=== PATIENT | male | born 1990 | race Caucasian/White ===

== ENCOUNTER 2023-08-28 15:50 | Emergency (ER) | payer MEDICAID, SELFPAY ==
[2023-08-28 15:53] VITALS: BP 151/84; PULSE 118; RESP 20; TEMP 37; O2SAT 96
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
[2023-08-28] MEDS: ACETAMINOPHEN 1,000 MG/100 ML BTL 400 MG IVPB (16:33)
[2023-08-28] MEDS: Lactated Ringers 1,000 ML 1000 ML IV (16:33)
[2023-08-28 16:39] LABS: Abs Immature Grans 0.04 10^3/uL (0.0-0.06); Absolute Basophil Count 0.03 10^3/uL (0.0-0.2); Absolute Eosinophil Count 0.01 10^3/uL (0.0-0.7); Absolute Lymphocyte Count 1.58 10^3/uL (1.2-3.4); Absolute Monocyte Count 1.38 10^3/uL (0.1-0.8); Absolute Neutrophil Count 6.75 10^3/uL (1.2-6.7); Basophils % 0.3; Eosinophils % 0.1; HCT 35.7 % (40.0-50.0); HGB 11.9 g/dL (13.5-17.5); Immature Grans % 0.4; Lymphocytes % 16.1; MCH 28.7 pg (27.0-33.0); MCHC 33.3 % (32.0-36.0); MCV 86 fL (80-95); MPV 9.3 fL (8.0-11.0); Monocytes % 14.1; Platelet Count 190 10^3/uL (130-400); RBC 4.14 10^6/uL (4.36-5.78); RDW 12.7 % (11.8-14.1); RDW-SD 39.9 fL; WBC 9.79 10^3/uL (4.4-10.8)
[2023-08-28 16:58] LABS: ALT 128 U/L (16-63); AST 150 U/L (15-37); Albumin 4.4 g/dL (3.4-5.0); Alkaline Phosphatase 72 U/L (46-116); Anion Gap 11.1 mmol/L (3-11); BUN 17 mg/dL (7-18); Bilirubin, Total 0.7 mg/dL (0.2-1.0); CO2 26.9 mmol/L (21.0-32.0); Calcium 9.4 mg/dL (8.5-10.1); Chloride 103 mmol/L (98-107); Estimated GFR 101.92 (mL/min/1.73m2); Glucose 97 mg/dL (74-106); Potassium 3.1 mmol/L (3.5-5.1); Sodium 141 mmol/L (136-145); Total Protein 8.2 g/dL (6.4-8.2)
[2023-08-28 16:59] LABS: ETHANOL BLOOD < 3.0 mg/dL (<10)
[2023-08-28] MEDS: Normal Saline - Diluent 50 ML VIAL IJ (17:28)
[2023-08-28] MEDS: Omnipaque 350 MG/ML 100 ML BTL IJ (17:29)
[2023-08-28] MEDS: Normal Saline Flush 10 ML SYR IVP (17:29)
[2023-08-28 18:35] VITALS: BP 137/78; PULSE 82; TEMP 37.2; O2SAT 95
[2023-09-01 11:17] LABS: Hepatitis A Antibody IgM Negative (Negative); Hepatitis B Core Antibody Positive (Negative); Hepatitis B surface Ag Negative (Negative); Hepatitis C Ab w Rflx HCV PCR Reactive (Negative)
[2023-09-02 22:53] LABS: HBc IgM Ab, S Negative (Negative)
[2023-09-03 13:22] LABS: HCV RNA Detection Quantitative 81500 IU/mL (Undetected); HCV RNA Qualitative Detected (Undetected)
== END 2023-08-28 18:36 | disposition home or self-care (01) ==
LOC: ER 18:43
PROVIDERS: Emergency Provider Physician Assistant
DX: S06.0X0A Concussion without loss of consciousness, initial encounter (principal); S30.0XXA Contusion of lower back and pelvis, initial encounter; V03.10XA Pedestrian on foot injured in collision with car, pick-up truck or van in traffic accident, initial encounter; Y93.01 Activity, walking, marching and hiking; Y92.89 Other specified places as the place of occurrence of the external cause; Y99.9 Unspecified external cause status
CPT/HCPCS: 74177; 80053; 86704; 86709; 86803; 86850; 86900; 86901; 87340; 87522; 96361; 96365; 99285; 70450; 71260; 72125; 80320; 85025; 86705; J0131; J3490

== ENCOUNTER 2023-09-05 02:58 | Emergency (ER) | payer MEDICAID, SELFPAY ==
[2023-09-05] VITALS (162 sets, daily range): BP systolic 105–144; BP diastolic 50–76; PULSE 66–128; RESP 8–44; TEMP 37–37.2; O2SAT 88–99
--- NOTE | 2023-09-05 02:45 | RT.EKG_ITS ---
APPROVED REPORT Exam: Resting ECG Reason for Exam: dizzy Patient Location: E HR:118 bpm ECG Measurements Heart Rate 118 AXIS SC 121 P 34 QRSd 81 QRS 51 QT 323 T 33 QTc 453 Conclusion Sinus tachycardia...rate> 99 Narrow complex sinus tachycardia at a rate of 118. Normal axis. Intervals within normal limits. No ST segment abnormalities. No T wave inversions. No prior for comparison.
--- NOTE | 2023-09-05 03:16 | W.ED.GENAD ---
Discharge Plan Discharge Details Chief Complaint: DrugWithdr/MAT Clinical Impression: Cocaine abuse Primary Care Provider: Unknown,Unknown ED Provider: Deborah Esteban Home Meds and New Rx's Prescriptions: No Action methadone 40 mg Tablet,Soluble 80 mg PO QAM clonidine HCl 0.1 mg tablet 0.1 mg PO BID Patient Comments: Take 1 tablet by mouth twice a day methadone 40 mg Tablet,Soluble 70 mg PO QHS clonidine HCl 0.2 mg tablet 0.2 mg PO QHS Patient Comments: TAKE ONE TABLET BY MOUTH AT BEDTIME HPI General Date/Time Provider Initiated Documentation: 09/05/23 03:16. HPI Narrative: HPI This is a 33-year-old male arrived to the emergency department via paramedics in the setting of feeling faint and sweaty today. Patient reports that he had been binging on cocaine for the past 10 days. He last used cocaine yesterday. Today he feels dizzy and loopy. He also takes methadone. He reports that he significantly smokes and injects cocaine. He is not currently suicidal nor homicidal. Beyond methadone he takes no other medications. He denies routine ethanol. He says that he does occasionally vape tobacco. He denies nauseousness shortness of breath chest pain fevers chills and shortness of breath. Exam General: Well-appearing in no acute distress speaking in complete sentences. Head: Normocephalic, atraumatic. Eye: Extraocular eye movements intact. No conjunctival injection. No scleral icterus. Ear, nose, mouth, throat: Grossly normal inspection. Normal voice, handling secretions normally. Neck: Trachea midline. Cardiovascular: Well-perfused distal extremities. Rapid regular rate. Respiratory: Nonlabored respiration. Clear lungs bilaterally Gastrointestinal: Nondistended abdomen. Soft nontender Musculoskeletal: No edema. Moving all 4 extremities spontaneously. Skin: Normal for age and race, grossly normal temperature and turgor. No acute rash. No stigmata of endocarditis. Neurologic: Alert and appropriate, no apparent acute deficits. Psychiatric: Mood and manner are appropriate. Grooming and personal hygiene are appropriate. MDM This is an overall well-appearing normothermic but tachycardic 33-year-old male with recent increased use of cocaine now with concerns over feeling faint for which patient will benefit from supportive care. No signs of trauma so low suspicion for intracranial hemorrhage. Patient is maintaining his airway and does not have pinpoint pupils so low suspicion for opiate toxidrome. Patient is not diaphoretic nor agitated to suggest sympathomimetic toxidrome so will defer benzodiazepines at this point time. No tonic-clonic activity to suggest seizures and no indication for EEG. Patient is moving all 4 extremities spontaneously and my suspicion is low for CVA so I do not feel that the patient requires an MRI. No fevers nor nuchal rigidity to suggest meningitis so no indication for LP. No pain or proportion to suggest necrotizing soft tissue infection. We will ensure patient does not have myocardial injury with troponin testing and will also obtain a CK to assess for rhabdomyolysis. No stigmata of endocarditis on physical exam and no chest pain to suggest septic emboli. Given no hypoxia, no shortness of breath and no chest pain will defer chest x-ray at this point time. No reported suicidal or homicidal ideation however will obtain salicylates, acetaminophen, and ethanol levels. Patient is on methadone however his QTc is not prolonged on his ECG. We will monitor the patient in the emergency department. 3:41 AM Patient's heart rate normalized to 82 bpm after drinking some fluids orally and receiving 1 L of IV fluids. He complained of nausea for which he received 4 mg of ondansetron. 3:55 AM Negative ethanol level. Basic metabolic panel showing mild anion gap and mild hyperglycemia. Normal bicarbonate. Not consistent with DKA. Very mild hypokalemia with a serum potassium of 3.4. No XOCHITL. CBC showing mild normocytic anemia improved compared to prior. No thrombocytopenia. No leukocytosis. Negative troponin. CK not consistent with rhabdomyolysis. Urine drug screen positive for methadone and cocaine. 5:12 AM Patient is feeling agitated for which I gave him 1 mg of oral lorazepam. Current heart rate 68 bpm. Negative acetaminophen level. Salicylate level not undetectable but not flagged as positive. Will order a repeat salicylate level to be timed with repeat troponin in approximately 1 hour. 6:10 AM I signed patient out to Dr. Esteban. We will offer intervention services once patient awakes. Chronic conditions affecting the care of the patient: Cocaine and opiate use History obtained from an outside historian: N/A External record review: [facility] EMR [Diagnostic interpretations performed by me:] [Per my independent interpretation EKG shows:] Narrow complex sinus tachycardia at a rate of 118. Normal axis. Intervals within normal limits. No ST segment abnormalities. No T wave inversions. No prior for comparison. Medications: ondansetron Social determinants of health affecting disposition: Patient reports that he does have a safe place to stay as he stays with friends in a sober living home. Management discussed with: Oncoming ED provider Treatment/interventions considered: N/A Response to therapies provided: Symptomatic improvement status post oral and IV fluids Related Data Home Medications Medication Instructions Recorded Confirmed clonidine HCl 0.1 mg tablet 0.1 mg PO BID 09/05/23 09/05/23 clonidine HCl 0.2 mg tablet 0.2 mg PO QHS 09/05/23 09/05/23 methadone 40 mg soluble tablet 70 mg PO QHS 09/05/23 09/05/23 methadone 40 mg soluble tablet 80 mg PO QAM 09/05/23 09/05/23 Allergies Allergy/AdvReac Type Severity Reaction Status Date / Time No Known Allergies Allergy Unverified 08/28/23 15:57 General Stated Complaint: DrugWithdr/MAT HALLE: 2 PFSH All Active Problems (Updated 09/05/23 @ 03:57 by Diaz Young MD) Concussion (Acute) Lumbar contusion (Acute) Cocaine abuse (Acute) Social History Smoking/Tobacco Use Status: Current-Occasional Tobacco Type: cigarettes and e-cigarettes Smoking risk assessment performed?: Yes Alcohol Intake: former Drug use: Binges Substance use type: crack/cocaine Details: methadone and cocaine Housing: homeless Do you feel safe at home: Yes Do you feel safe in your relationship?: Yes Course Vital Signs Vital signs: Vital Signs Temperature 37.2 C 09/05/23 03:00 Pulse 128 H 09/05/23 03:00 Respiratory Rate 22 09/05/23 03:00 Blood Pressure 117/56 L 09/05/23 03:00 Pulse Oximetry 95 09/05/23 03:00 Temperature 37.2 C 09/05/23 03:00 Temperature Source Oral 09/05/23 03:00 Pulse 128 H 09/05/23 03:00 Respiratory Rate 22 09/05/23 03:00 Respiratory Effort Normal, Non-Labored 09/05/23 03:04 Respiratory Pattern Irregular 09/05/23 03:04 Blood Pressure 117/56 L 09/05/23 03:00 Blood Pressure Position Sitting 09/05/23 03:00 Pulse Oximetry 95 09/05/23 03:00 Oxygen Delivery Method Room Air 09/05/23 03:00 Oxygen Flow Rate 0 09/05/23 03:00 Pain Level 0 09/05/23 03:00
[2023-09-05 03:46] LABS: Abs Immature Grans 0.02 10^3/uL (0.0-0.06); Absolute Basophil Count 0.03 10^3/uL (0.0-0.2); Absolute Lymphocyte Count 0.66 10^3/uL (1.2-3.4); Absolute Monocyte Count 0.56 10^3/uL (0.1-0.8); Absolute Neutrophil Count 7.11 10^3/uL (1.2-6.7); Basophils % 0.4; HCT 36.9 % (40.0-50.0); HGB 12.1 g/dL (13.5-17.5); Immature Grans % 0.2; Lymphocytes % 7.9; MCH 28.5 pg (27.0-33.0); MCHC 32.8 % (32.0-36.0); MCV 87 fL (80-95); MPV 10.4 fL (8.0-11.0); Monocytes % 6.7; Neutrophils % 84.8; Platelet Count 189 10^3/uL (130-400); RBC 4.25 10^6/uL (4.36-5.78); RDW 12.9 % (11.8-14.1); WBC 8.38 10^3/uL (4.4-10.8)
[2023-09-05 03:52] LABS: *AMPHETAMINES SCREEN URINE Negative (Negative); *BARBITURATES SCREEN URINE Negative (Negative); *BENZODIAZEPINES SCREEN URINE Negative (Negative); Anion Gap 12.2 mmol/L (3-11); BUN 19 mg/dL (7-18); CO2 25.8 mmol/L (21.0-32.0); Calcium 9.4 mg/dL (8.5-10.1); Cannabinoids THC Negative (Negative); Chloride 103 mmol/L (98-107); Cocaine Screen,Urine Positive (Negative); Creatine Kinase 271 U/L (39-308); Estimated GFR 101.92 (mL/min/1.73m2); Glucose 169 mg/dL (74-106); METHADONE URINE SCREEN Positive (Negative); OPIATES URINE SCREEN Negative (Negative); Potassium 3.4 mmol/L (3.5-5.1); Sodium 141 mmol/L (136-145); Troponin I < 50 ng/L (<or=60)
[2023-09-05] MEDS: Ondansetron 4 MG/2 ML VIAL IVP (03:52)
[2023-09-05] MEDS: Normal Saline 1,000 ML 1000 ML IV (03:52)
[2023-09-05 03:53] LABS: ETHANOL BLOOD < 3.0 mg/dL (<10); Tricyclic Antidepressants Negative (Negative)
[2023-09-05 04:11] LABS: Salicylate 3.1 mg/dL (<2.8)
[2023-09-05 04:12] LABS: Acetaminophen < 2 ug/mL (10-30)
[2023-09-05] MEDS: LORazepam 1 MG TAB PO (05:14)
--- NOTE | 2023-09-05 06:04 | W.EDPROG ---
Date of service: 09/05/23 Time of Service: 06:00 Medical Decision Making This patiient was signed out to me. Please see previous notes for H&P and initial eval. In brief, 33yo M presenting after cocaine use. EKG, workup reassuring. Pending repeat troponin and salicylate level; if no increases plan for discharge home. Troponin negative. Salicylate negative. On reassessment he is well appearing with reassuring vital signs. Ambulates in the department with a steady gait. Discharged home; discharge instructions including return precautions were reviewed with patient who verbalized understanding. All questions were answered and they are in full agreement with the plan. Discharge Plan Disposition Patient Disposition: Home Condition: Good Discharge Details Clinical Impression: Cocaine abuse Primary Care Provider: Unknown,Unknown ED Provider: Deborah Esteban Home Meds and New Rx's Prescriptions: No Action methadone 40 mg Tablet,Soluble 80 mg PO QAM clonidine HCl 0.1 mg tablet 0.1 mg PO BID Patient Comments: Take 1 tablet by mouth twice a day methadone 40 mg Tablet,Soluble 70 mg PO QHS clonidine HCl 0.2 mg tablet 0.2 mg PO QHS Patient Comments: TAKE ONE TABLET BY MOUTH AT BEDTIME Discharge Instructions Instructions: Cocaine Abuse (ED) Additional Instructions: Call your primary care doctor today to schedule an appointment to follow up on your visit here. Return to the emergency department for new or worsening symptoms.
[2023-09-05 06:41] LABS: Troponin I < 50 ng/L (<or=60)
[2023-09-05 06:58] LABS: Salicylate < 2.8 mg/dL (<2.8)
== END 2023-09-05 07:37 | disposition home or self-care (01) ==
PROVIDERS: Emergency Medicine; Emergency Provider Student in an Organized Health Care Education/Training Program
DX: F14.10 Cocaine abuse, uncomplicated (principal)
CPT/HCPCS: 80048; 80307; 82550; 93005; 96365; 96376; 99284; 80320; 80329; 84484; 85025; 93010; J2405

== ENCOUNTER 2023-09-18 22:42 | Emergency (ER) | payer MEDICAID, SELFPAY ==
--- NOTE | 2023-09-18 22:30 | RT.EKG_ITS ---
APPROVED REPORT Exam: Resting ECG Reason for Exam: Chest Pain Patient Location: E HR:126 bpm ECG Measurements Heart Rate 126 AXIS KS 142 P 73 QRSd 84 QRS 61 QT 320 T 20 QTc 464 Conclusion Sinus tachycardia...rate> 99 Atrial premature complex...SV complex w/ short R-R interval PHysician: no stemi, intervals normal
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
[2023-09-18 22:46] VITALS: BP 157/129; PULSE 132; RESP 17; TEMP 37.1; O2SAT 96
--- NOTE | 2023-09-18 22:58 | ED.GENADUL_ITS ---
Discharge Plan Disposition Patient Disposition: Home Discharge Details Clinical Impression: Cocaine withdrawal, Opiate withdrawal, Incidental pulmonary nodule Primary Care Provider: Unknown,Unknown ED Provider: Zachery Wren Home Meds and New Rx's Prescriptions: No Action methadone 40 mg Tablet,Soluble 80 mg PO QAM clonidine HCl 0.1 mg tablet 0.1 mg PO BID Patient Comments: Take 1 tablet by mouth twice a day methadone 40 mg Tablet,Soluble 70 mg PO QHS clonidine HCl 0.2 mg tablet 0.2 mg PO QHS Patient Comments: TAKE ONE TABLET BY MOUTH AT BEDTIME Discharge Instructions Instructions: Narcotic Withdrawal (ED) Additional Instructions: At this time your withdrawal symptoms have improved. Your work-up shows no signs of heart attack or other significant abnormality. Please follow-up closely with your mental health advocates. They can be contacted at [phone] If you notice any worsening of your symptoms, or any new symptoms such as vomiting, diarrhea, fever, chills, shortness of breath, chest pain, numbness, weakness, or fainting , please return immediately to the emergency department for reevaluation. Please follow up with your primary care provider as soon as possible for reassessment and reevaluation. As always, it was a pleasure participating in your medical care today. Medical Decision Making 33-year-old male with a past medical history of cocaine and heroin use, as well as history of cocaine induced myocardial infarction presents today for evaluation of chest pain. Patient states that he had been using cocaine and heroin recently, he states that this is brought on by a in the family and significant peer pressures. He has been withdrawing over the last 3 days, last use was 3 days ago. He states that he has been having persistent chest pain, and feelings of panic and anxiety ever since. He denies any vomiting or diarrhea. EMS was called today, and he was brought to the ER for further evaluation. Per EMS report the patient is tachycardic, hypertensive. Patient states that this feels like his last time that he withdrew from cocaine opium. Patient describes the chest pain as a tightness around his chest whenever he tries to breathe or move. He denies any tearing or ripping sensation. He denies any arm or neck pain. He denies any alcohol use or other drug use. No other complaints at this time. No other modifying factors. Exam demonstrates slightly anxious appearing male. He denies homicidal or suicidal ideations. He is tachycardic, hypertensive, temperature questionably elevated at 37.7. He denies any antipsychotic use, he denies any other drug use. Patient is requesting that no one be contacted from his HIPAA list, and we will put him through to access to change his current HIPAA list. Additionally he is asking us to contact a refinery operator vapor recovery unit to help him with his current struggles. Differential at this time includes opiate withdrawal, concurrent cocaine use, infection, and less likely dissection. We will give Ativan, rehydrate, evaluate for these etiologies, monitor closely and reassess. 1:44 AM Patient did take his own IV out on his own volition. CT scan demonstrates no evidence of acute process. There is an old unchanged lung nodule. Laboratory work-up is notably benign. Patient did not provide a urinalysis for us. Patient was given clonidine patch and some Valium and this notably resolved his elevated heart rate his anxiety and his chest pain. Symptoms appear clinically inconsistent with ACS or dissection. Laboratory work-up is otherwise benign. Patient does feel much better. He feels comfortable going home but does not have a way to get back at this time. Unfortunately the recovery technology counselors did not call back after having been paged a few times. Patient did asked to speak with her mental health advocates as he does feel depressed. He denies any homicidal or suicidal ideations though, he just feels somewhat depressed with his current situation. Patient is otherwise stable for discharge. We will continue to watch the patient here while we wait for him to talk with mental health. No indication for one-to-one observer as he has no homicidal or suicidal ideations at this time. 2:06 AM Patient was assessed by mental health. They provided resources to him. He continues to this deny any homicidal or suicidal ideations. No indication for involuntary admission. Patient stable for discharge. We will give him the resources to continue to contact mental health on an outpatient basis if needed. Patient otherwise stable. Discussed red flags for which to return. Patient no longer appears to be in benjy withdrawal. Patient is hemodynamically stable. I have extensively reviewed the treatment plan and discharge instructions with the patient. I have addressed all patient concerns at this time. The patient was made aware of what symptoms to monitor for that would warrant a return to the emergency department. Discussed the plan with the patient, they demonstrate verbal understanding and agreement with our assessment and plan at this time. The documentation in this chart was dictated using ttwick dictation software. Please excuse any dictation errors. The patient is able to speak clearly. There is no demonstration of any slurring of speech. There is evidence of clear de cision making capacity. Patient is able to ambulate well without any difficulty. There are no signs of ataxia or stumbling motions. FINDINGS: Pulmonary arteries: The pulmonary arteries enhance appropriately with no evidence of pulmonary embolism. Aorta: No aortic aneurysm or dissection. No mediastinal hematoma. Thyroid: The visualized thyroid gland demonstrates no gross abnormality. Lungs: No acute tracheobronchial abnormalities. No gross pulmonary infiltrates or edema pattern. There is a 4 mm juxtapleural noncalcified pulmonary nodule in the posterior right base series 9, image 234. This is unchanged from recent scan 08/28/2023. If patient does not have known cancer, follow up should be based on clinical information because of the low risk of cancer in this age group. (Tc et al., Fleischner Society, 2017). Pleural spaces: No pleural effusion. No pneumothorax. Heart: Heart size normal. No pericardial effusion. Mediastinal space: The esophagus is largely contracted but demonstrates no gross abnormality. Lymph nodes: No supraclavicular or axillary adenopathy. No mediastinal or hilar adenopathy. Spleen: Mild splenomegaly measuring 14.4 cm unchanged. No focal splenic lesions. Bones/joints: No acute osseous abnormalities are identified. There are few chronic healed right posterior lower rib fractures. Soft tissues: The soft tissues of the chest wall demonstrate no acute abnormality. IMPRESSION: 1. No evidence of pulmonary embolism or aortic dissection. 2. No acute thoracic process is evident. No change from 08/28/2023. 3. There is a 4 mm juxtapleural nodule in the posterior right lung base which is unchanged from recent scan. Please see recommendations above. 4. Mild splenomegaly unchanged. Thank you for allowing us to participate in the care of your patient. Dictated and Authenticated by: Diaz Workman MD 09/19/2023 1:38 AM Eastern Time ([place] & [place]) HPI General Date/Time Provider Initiated Documentation: 09/18/23 22:49 . HPI Narrative: 33-year-old male with a past medical history of cocaine and heroin use, as well as history of cocaine induced myocardial infarction presents today for evaluation of chest pain. Patient states that he had been using cocaine and heroin recently, he states that this is brought on by a in the family and significant peer pressures. He has been withdrawing over the last 3 days, last use was 3 days ago. He states that he has been having persistent chest pain, and feelings of panic and anxiety ever since. He denies any vomiting or diarrhea. EMS was called today, and he was brought to the ER for further evaluation. Per EMS report the patient is tachycardic, hypertensive. Patient states that this feels like his last time that he withdrew from cocaine opium. Patient describes the chest pain as a tightness around his chest whenever he tries to breathe or move. He denies any tearing or ripping sensation. He denies any arm or neck pain. He denies any alcohol use or other drug use. No other complaints at this time. No other modifying factors. Related Data Home Medications Medication Instructions Recorded Confirmed clonidine HCl 0.1 mg tablet 0.1 mg PO BID 09/05/23 09/05/23 clonidine HCl 0.2 mg tablet 0.2 mg PO QHS 09/05/23 09/05/23 methadone 40 mg soluble tablet 70 mg PO QHS 09/05/23 09/05/23 methadone 40 mg soluble tablet 80 mg PO QAM 09/05/23 09/05/23 Allergies Allergy/AdvReac Type Severity Reaction Status Date / Time No Known Allergies Allergy Unverified 08/28/23 15:57 General Stated Complaint: Chest Pain HALLE: 2 Review of Systems All systems reviewed & are unremarkable except as noted in HPI and below PFSH All Active Problems (Updated 09/19/23 @ 02:10 by Zachery Wren DO) Incidental pulmonary nodule (Acute) Opiate withdrawal (Acute) Cocaine withdrawal (Acute) Cocaine abuse (Acute) Lumbar contusion (Acute) Concussion (Acute) Social History Smoking/Tobacco Use Status: Current every day Tobacco Type: cigarettes and e- cigarettes Smoking risk assessment performed?: Yes Alcohol Intake: former Drug use: Binges Substance use type: crack/cocaine Details: methadone and cocaine Housing: homeless Do you feel safe at home: Yes Do you feel safe in your relationship?: Yes Exam Narrative Exam Narrative: 1.Const: Well-nourished, Well-developed, appearing stated age 2.Eyes: PERRL, no conjunctival injection, and symmetrical lids. 3.ENT: Atraumatic external nose and ears. Moist MM. Neck: Symmetric, trachea midline, No thyromegaly. 4.CVS: +S1/S2, No murmurs or gallops. Peripheral pulses 2+ and equal in all extremities. Brisk capillary refill in all extremities. Radial pulses +2 bilaterally 5.RESP: Unlabored respiratory effort. Clear to auscultation bilaterally. No wheezes rales or rhonchi 6.GI: Soft, Nontender/Nondistended, No hepatosplenomegaly. No guarding or rebound. 7.MSK: Normocephalic/Atraumatic, Extremities w/o deformity or ttp No cyanosis or clubbing, Normal movement of all extremities 8.Skin: Warm, Dry. No rashes or lesions. 9.Neuro: powerhouse helper II-XII grossly intact. Sensation grossly intact, no focal neurologic deficits. 10.Psych: (AAO) x3. Appropriate mood and affect Course Vital Signs Vital signs: Vital Signs Temperature 37.7 C H 09/18/23 22:46 Pulse 132 H 09/18/23 22:46 Respiratory Rate 17 09/18/23 22:46 Blood Pressure 157/129 H 09/18/23 22:46 Pulse Oximetry 96 09/18/23 22:46 Temperature 37.7 C H 09/18/23 22:46 Temperature Source Oral 09/18/23 22:46 Pulse 132 H 09/18/23 22:46 Respiratory Rate 17 09/18/23 22:46 Respiratory Effort Normal 09/18/23 22:49 Blood Pressure 157/129 H 09/18/23 22:46 Pulse Oximetry 96 09/18/23 22:46 Oxygen Delivery Method Room Air 09/18/23 22:46 Oxygen Flow Rate 0 09/18/23 22:46
[2023-09-18 23:01] LABS: Abs Immature Grans 0.03 10^3/uL (0.0-0.06); Absolute Basophil Count 0.03 10^3/uL (0.0-0.2); Absolute Eosinophil Count 0.02 10^3/uL (0.0-0.7); Absolute Lymphocyte Count 1.25 10^3/uL (1.2-3.4); Absolute Neutrophil Count 6.48 10^3/uL (1.2-6.7); Basophils % 0.3; Eosinophils % 0.2; Immature Grans % 0.3; Lymphocytes % 14.5; MCH 28.5 pg (27.0-33.0); MCHC 32.5 % (32.0-36.0); MCV 88 fL (80-95); MPV 10.1 fL (8.0-11.0); Monocytes % 9.3; Neutrophils % 75.4; Platelet Count 212 10^3/uL (130-400); RBC 4.56 10^6/uL (4.36-5.78); RDW 13.2 % (11.8-14.1); RDW-SD 42.5 fL; WBC 8.61 10^3/uL (4.4-10.8)
[2023-09-18] MEDS: LORazepam 2 MG/ML VIAL IVP (23:07)
[2023-09-18] MEDS: Normal Saline 1,000 ML 1000 ML IV (23:12)
[2023-09-18 23:16] VITALS: RESP 20
[2023-09-18 23:17] LABS: INR 1.1 (0.9-1.1); PTT Activated 21.6 sec (23.6-32.8); Prothrombin Time 11.1 sec (9.1-11.1)
[2023-09-18 23:24] LABS: ALT 313 U/L (16-63); AST 113 U/L (15-37); Albumin 4.3 g/dL (3.4-5.0); Alkaline Phosphatase 78 U/L (46-116); Anion Gap 7.3 mmol/L (3-11); BUN 10 mg/dL (7-18); Bilirubin, Total 0.4 mg/dL (0.2-1.0); CO2 28.7 mmol/L (21.0-32.0); CREATININE 0.9 mg/dL (0.70-1.30); Calcium 9.5 mg/dL (8.5-10.1); Chloride 102 mmol/L (98-107); Estimated GFR 115.65 (mL/min/1.73m2); Glucose 161 mg/dL (74-106); NT-proBNP 41 pg/mL (<300); Sodium 138 mmol/L (136-145); TSH (W/Ref FT4) 2.54 uIU/mL (0.36-3.74); Total Protein 8.3 g/dL (6.4-8.2); Troponin I < 50 ng/L (<or=60)
--- NOTE | 2023-09-18 23:31 | NUR.NOTE ---
pt refuses to be hooked up to the monitor. states it makes him too anxious, states he will leave, can't deal with the anxiety. heart monitor and BP are not on pt. pt walking around room. Nursing Note:
[2023-09-18 23:35] LABS: ETHANOL BLOOD < 3.0 mg/dL (<10)
[2023-09-18 23:48] LABS: COVID-19 PCR Negative (Negative); Influenza A PCR Negative (Negative); Influenza B PCR Negative (Negative); RSV PCR Negative (Negative)
[2023-09-18 23:50] LABS: Source Nasopharynx
[2023-09-18] MEDS: diazePAM 10 MG/2 ML SYR IVP (23:50)
[2023-09-19] MEDS: cloNIDine 0.1 MG PATCH TD (00:08)
--- NOTE | 2023-09-19 00:10 | NUR.NOTE ---
restless, anxious, can't stop twitching-can't go into CT scan. 10mg IV valium given.Nursing Note:
[2023-09-19 00:13] VITALS: PULSE 137; O2SAT 96
[2023-09-19] MEDS: Normal Saline - Diluent 50 ML VIAL IJ (00:37)
[2023-09-19] MEDS: Omnipaque 350 MG/ML 100 ML BTL IJ (00:38)
--- NOTE | 2023-09-19 01:21 | NUR.NOTE ---
spent 10 minutes in Bathroom. had the water on, flushed the toilet multiple times, said it helps him to take a shit. when he opeended the door to come out, he had pulled his IV out. blood on the his gown and one the floor. said he did not want the IV in anymore. said he had vomited on the floor. he was trying to clean it up. Nursing Note:
--- NOTE | 2023-09-19 01:39 | DI.VRAD_ITS ---
PROCEDURE INFORMATION: Exam: CTA Chest With Contrast Exam date and time: 09/19/2023 12:23 AM Age: 33 years old Clinical indication: Chest pressure and other: Cocaine, chest pain, eval for dissection TECHNIQUE: Imaging protocol: Computed tomographic angiography of the chest with contrast. Exam focused on the arteries. 3D rendering (Not supervised by radiologist): MIP and/or 3D reconstructed images were created by the technologist. Contrast material: OMNIPAQUE 350; Contrast volume: 100 ml; Contrast route: INTRAVENOUS (IV); COMPARISON: CT CHEST/ABD/PEL W 08/28/2023 5:05 PM FINDINGS: Pulmonary arteries: The pulmonary arteries enhance appropriately with no evidence of pulmonary embolism. Aorta: No aortic aneurysm or dissection. No mediastinal hematoma. Thyroid: The visualized thyroid gland demonstrates no gross abnormality. Lungs: No acute tracheobronchial abnormalities. No gross pulmonary infiltrates or edema pattern. There is a 4 mm juxtapleural noncalcified pulmonary nodule in the posterior right base series 9, image 234. This is unchanged from recent scan 08/28/2023. If patient does not have known cancer, follow up should be based on clinical information because of the low risk of cancer in this age group. (Tc et al., Fleischner Society, 2017). Pleural spaces: No pleural effusion. No pneumothorax. Heart: Heart size normal. No pericardial effusion. Mediastinal space: The esophagus is largely contracted but demonstrates no gross abnormality. Lymph nodes: No supraclavicular or axillary adenopathy. No mediastinal or hilar adenopathy. Spleen: Mild splenomegaly measuring 14.4 cm unchanged. No focal splenic lesions. Bones/joints: No acute osseous abnormalities are identified. There are few chronic healed right posterior lower rib fractures. Soft tissues: The soft tissues of the chest wall demonstrate no acute abnormality. IMPRESSION: 1. No evidence of pulmonary embolism or aortic dissection. 2. No acute thoracic process is evident. No change from 08/28/2023. 3. There is a 4 mm juxtapleural nodule in the posterior right lung base which is unchanged from recent scan. Please see recommendations above. 4. Mild splenomegaly unchanged. Dictated and Authenticated by: Diaz Workman MD. Ordering:TOBI Bingham MD
[2023-09-19 02:29] VITALS: BP 137/118; PULSE 118; RESP 16; TEMP 37.1; O2SAT 95
[2023-09-22 13:30] LABS: Hepatitis A Antibody IgM Negative (Negative); Hepatitis B Core Antibody Positive (Negative); Hepatitis B surface Ag Negative (Negative); Hepatitis C Ab w Rflx HCV PCR Reactive (Negative)
[2023-09-24 12:13] LABS: HCV RNA Qualitative Detected (Undetected)
== END 2023-09-19 02:29 | disposition home or self-care (01) ==
PROVIDERS: Emergency Provider Student in an Organized Health Care Education/Training Program
DX: R07.9 Chest pain, unspecified (principal); F11.23 Opioid dependence with withdrawal; F14.23 Cocaine dependence with withdrawal; R91.1 Solitary pulmonary nodule; R00.0 Tachycardia, unspecified; R03.0 Elevated blood-pressure reading, without diagnosis of hypertension; F32.A Depression, unspecified; F17.200 Nicotine dependence, unspecified, uncomplicated
CPT/HCPCS: 36415; 71275; 80053; 86704; 86709; 86803; 87340; 87522; 87637; 93005; 96361; 96374; 96375; 99285; 80320; 83880; 84443; 84484; 85025; 85610; 85730; 86705; 93010; 99284; J2060; J3360; J3490

== ENCOUNTER 2023-09-20 01:18 | Emergency (ER) | payer MEDICAID, SELFPAY ==
--- NOTE | 2023-09-20 01:15 | RT.EKG_ITS ---
APPROVED REPORT Exam: Resting ECG Reason for Exam: chest tightness Patient Location: E HR:119 bpm ECG Measurements Heart Rate 119 AXIS NC 135 P 51 QRSd 85 QRS 49 QT 357 T 31 QTc 503 Conclusion Sinus tachycardia...rate> 99 Prolonged QT interval...QTc >488mS I have reviewed and interpreted ECG and agree with software generated interpretation.
[2023-09-20 01:17] VITALS: BP 175/103; PULSE 116; RESP 18; TEMP 37.2
[2023-09-20 01:21] VITALS: RESP 18
--- NOTE | 2023-09-20 01:52 | NUR.NOTE ---
RN noted that PT has something in his pants that he is hiding. RN dirt supervisor notified Nursing Note:
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
[2023-09-20 01:54] LABS: Abs Immature Grans 0.02 10^3/uL (0.0-0.06); Absolute Basophil Count 0.04 10^3/uL (0.0-0.2); Absolute Eosinophil Count 0.05 10^3/uL (0.0-0.7); Absolute Lymphocyte Count 1.67 10^3/uL (1.2-3.4); Absolute Monocyte Count 0.95 10^3/uL (0.1-0.8); Basophils % 0.6; Eosinophils % 0.7; HGB 12.6 g/dL (13.5-17.5); Immature Grans % 0.3; Lymphocytes % 23.8; MCH 28.1 pg (27.0-33.0); MCHC 32.3 % (32.0-36.0); MCV 87 fL (80-95); MPV 9.5 fL (8.0-11.0); Monocytes % 13.5; Neutrophils % 61.1; Platelet Count 211 10^3/uL (130-400); RBC 4.49 10^6/uL (4.36-5.78); RDW 13.1 % (11.8-14.1); RDW-SD 41.2 fL; WBC 7.03 10^3/uL (4.4-10.8)
[2023-09-20 02:11] LABS: Salicylate < 2.8 mg/dL (<2.8)
--- NOTE | 2023-09-20 02:15 | NUR.NOTE ---
PT was in the bathroom for an extended amount of time. and states that he has diarrhea. PT did not give a urine sample. Nursing Note:
[2023-09-20] MEDS: Mylanta Suspension 30 ML CUP PO (02:18)
[2023-09-20 02:19] LABS: ALT 261 U/L (16-63); AST 98 U/L (15-37); Acetaminophen < 2 ug/mL (10-30); Albumin 4.3 g/dL (3.4-5.0); Alkaline Phosphatase 74 U/L (46-116); Anion Gap 6.5 mmol/L (3-11); BUN 13 mg/dL (7-18); Bilirubin, Total 0.7 mg/dL (0.2-1.0); CO2 29.5 mmol/L (21.0-32.0); CREATININE 0.8 mg/dL (0.70-1.30); Calcium 9.9 mg/dL (8.5-10.1); Chloride 101 mmol/L (98-107); Estimated GFR 119.84 (mL/min/1.73m2); Glucose 171 mg/dL (74-106); Potassium 3.1 mmol/L (3.5-5.1); Sodium 137 mmol/L (136-145); TSH (W/Ref FT4) 1.82 uIU/mL (0.36-3.74); Total Protein 7.8 g/dL (6.4-8.2)
[2023-09-20 02:20] LABS: ETHANOL BLOOD < 3.0 mg/dL (<10)
[2023-09-20] MEDS: LORazepam 1 MG TAB 2 MG PO ×2 (02:32→04:46)
[2023-09-20] MEDS: Potassium Chloride 20 MEQ TABCR 40 MEQ PO (02:36)
[2023-09-20 03:42] LABS: *AMPHETAMINES SCREEN URINE Negative (Negative); *BARBITURATES SCREEN URINE Negative (Negative); *BENZODIAZEPINES SCREEN URINE Positive (Negative); Cannabinoids THC Negative (Negative); Cocaine Screen,Urine Positive (Negative); METHADONE URINE SCREEN Positive (Negative); OPIATES URINE SCREEN Negative (Negative)
[2023-09-20 03:52] LABS: Tricyclic Antidepressants Negative (Negative)
[2023-09-20] MEDS: OLANZapine 10 MG TAB PO (04:46)
[2023-09-20 06:29] VITALS: O2SAT 95
[2023-09-20 06:30] VITALS: BP 122/56; PULSE 74
--- NOTE | 2023-09-20 06:53 | NUR.NOTE ---
PT was wanded by security before being place in ED zone B. PT belongings were secured in the zone B vestibule in [place] [id number]. Nursing Note:
--- NOTE | 2023-09-20 14:06 | W.EDPROG ---
Date of service: 09/20/23 Time of Service: 14:06 Medical Decision Making Patient evaluated by mental health services. At this time the patient has no suicidal ideation or homicidal ideation. He states that he feels comfortable to go home. He reports that he takes methadone 70 mg twice a day and is requesting his dose as his clinic is closed already. We have not been able to confirm with [facility] the dosing however 1 single dose was given in the emergency department. No additional doses will be dispensed at this time. I explained this to the patient and he expressed understanding. The patient is stable for discharge home. Sign Out Sign Out Data: Sign Out Comment: Substance abuse, auditory hallucinations, medically cleared. Notably anxious. Pending voluntary placement for rehab and mental health. Last updated by Zachery Wren DO at 09/20/23 07:10 Discharge Plan Disposition Patient Disposition: Home Discharge Details Clinical Impression: Auditory hallucination, Substance abuse, Anxiety Primary Care Provider: Unknown,Unknown ED Provider: Marylou Gallo Home Meds and New Rx's Prescriptions: No Action methadone 40 mg Tablet,Soluble 80 mg PO QAM clonidine HCl 0.1 mg tablet 0.1 mg PO BID Patient Comments: Take 1 tablet by mouth twice a day methadone 40 mg Tablet,Soluble 70 mg PO QHS clonidine HCl 0.2 mg tablet 0.2 mg PO QHS Patient Comments: TAKE ONE TABLET BY MOUTH AT BEDTIME Discharge Instructions Additional Instructions: Please follow-up with methadone clinic for additional medications. Please follow-up with the mental health services available to you. Return to the emergency department with any suicidal or homicidal thoughts.
[2023-09-20] MEDS: Methadone 10 MG TAB 70 MG PO (14:12)
== END 2023-09-20 14:21 | disposition home or self-care (01) ==
PROVIDERS: Student in an Organized Health Care Education/Training Program; Emergency Provider Emergency Medicine
DX: F41.9 Anxiety disorder, unspecified (principal); R44.0 Auditory hallucinations; F19.10 Other psychoactive substance abuse, uncomplicated; I25.2 Old myocardial infarction; R94.31 Abnormal electrocardiogram [ECG] [EKG]; F17.210 Nicotine dependence, cigarettes, uncomplicated; F17.290 Nicotine dependence, other tobacco product, uncomplicated
CPT/HCPCS: 00123; 80053; 80307; 93005; 99283; 80320; 80329; 84443; 85025; 93010

== ENCOUNTER 2023-09-20 20:46 | Emergency (ER) | payer MEDICAID, SELFPAY ==
[2023-09-20 20:50] VITALS: BP 149/104; PULSE 130; RESP 15; O2SAT 96
--- NOTE | 2023-09-20 21:10 | ED.GENADUL_ITS ---
Discharge Plan Discharge Details Chief Complaint: RX Refill Primary Care Provider: Unknown,Unknown ED Provider: Cong Hernandez Home Meds and New Rx's Prescriptions: No Action methadone 40 mg Tablet,Soluble 80 mg PO QAM clonidine HCl 0.1 mg tablet 0.1 mg PO BID Patient Comments: Take 1 tablet by mouth twice a day methadone 40 mg Tablet,Soluble 70 mg PO QHS clonidine HCl 0.2 mg tablet 0.2 mg PO QHS Patient Comments: TAKE ONE TABLET BY MOUTH AT BEDTIME Medical Decision Making 33 yo male with hx of substance abuse on methadone, who states he has bipolar disorder presents with auditory hallucinations that are telling him to do things. Denies si/hi and is currently clinically sober, caox4 with clear speech. he has been seen for this twice this week and was seen last night, kept overnight and d/c'd today after being found to have no si/hi. He states he still has voices and is requesting his nightly methadone as he was unable to go to [facility] earlier due to being discharged late. He has no signs of trauma, no pain, no other concerning findings on ros. Had labs done within 24 hours that are unremarkable, medically cleared to speak with mental health. He has a hr of 130 but on review is usually in this range on chart review. pending psych eval signed out to oncoming provider Differential Diagnosis Differential Diagnosis: borderline personality, bipolar, substance abuse Medical Records Medical records reviewed: Yes I reviewed the patient's medical records. HPI General Mode of arrival: ambulatory . Date/Time Provider Initiated Documentation: 09/20/23 20:49 . Limitations to Documentation: no limitations . Information obtained by: patient . History of Present Illness 33 year old M presents to the emergency department with the chief complaint of auditory hallucinations, described as moderate, and it has been constant. No relieving factors improve symptom(s), No exacerbating factors reported . Related Data Home Medications Medication Instructions Recorded Confirmed clonidine HCl 0.1 mg tablet 0.1 mg PO BID 09/05/23 09/20/23 clonidine HCl 0.2 mg tablet 0.2 mg PO QHS 09/05/23 09/20/23 methadone 40 mg soluble tablet 70 mg PO QHS 09/05/23 09/05/23 methadone 40 mg soluble tablet 80 mg PO QAM 09/05/23 09/05/23 Allergies Allergy/AdvReac Type Severity Reaction Status Date / Time No Known Allergies Allergy Unverified 08/28/23 15:57 General Stated Complaint: RX Refill HALLE: 4 Review of Systems All systems reviewed & are unremarkable except as noted in HPI and below Constitutional Constitutional: Denies chills, Denies fever(s) and Denies weakness Cardiovascular Cardiovascular: Denies chest pain and Denies dyspnea Respiratory Respiratory: Denies cough and Denies dyspnea Gastrointestinal Gastrointestinal: Denies abdominal pain, Denies nausea and Denies vomiting Musculoskeletal Musculoskeletal: Denies joint swelling Neurologic Neurologic: Denies weakness PFSH All Active Problems (Updated 09/20/23 @ 07:08 by Zachery Wren DO) Anxiety (Chronic) Substance abuse (Acute) Auditory hallucination (Acute) Incidental pulmonary nodule (Acute) Opiate withdrawal (Acute) Cocaine withdrawal (Acute) Cocaine abuse (Acute) Lumbar contusion (Acute) Concussion (Acute) Social History Smoking/Tobacco Use Status: Current every day Tobacco Type: cigarettes and e- cigarettes Smoking risk assessment performed?: Yes Alcohol Intake: former Drug use: Binges Substance use type: crack/cocaine Details: methadone and cocaine Housing: homeless Do you feel safe at home: Yes Do you feel safe in your relationship?: Yes Exam Const General: no acute distress Orientation: alert HENMT Head: normal to inspection Ears: external ears normal General nose exam: external nose normal Mouth: moist mucous membranes Eyes General: appearance normal, both eyes and all related structures Neck Neck: normal visual inspection Resp Effort & Inspection: normal respiratory effort and able to speak in complete sentences Cardio Rate: regular rate Skin General skin exam: no rashes or lesions noted Neuro General: patient alert and patient oriented x3 Extrem General: normal to inspection Psych Appearance: well kempt Course Vital Signs Vital signs: Vital Signs Pulse 130 H 09/20/23 20:50 Respiratory Rate 15 09/20/23 20:50 Blood Pressure 149/104 H 09/20/23 20:50 Pulse Oximetry 96 09/20/23 20:50 Pulse 130 H 09/20/23 20:50 Respiratory Rate 15 09/20/23 20:50 Blood Pressure 149/104 H 09/20/23 20:50 Blood Pressure Position Sitting 09/20/23 20:50 Pulse Oximetry 96 09/20/23 20:50 Oxygen Delivery Method Room Air 09/20/23 20:50 Oxygen Flow Rate 0 09/20/23 20:50 Sign Out Sign Out Data: Sign Out Comment: pending psych eval for auditory hallucinations Last updated by Cong Hernandez MD at 09/20/23 22:04
--- NOTE | 2023-09-21 13:25 | ED.GENADUL_ITS ---
Discharge Plan Disposition Patient Disposition: Home Condition: Good Discharge Details Clinical Impression: Substance abuse, Anxiety Primary Care Provider: Unknown,Unknown ED Provider: Ingrid More Home Meds and New Rx's Prescriptions: Continued methadone 40 mg Tablet,Soluble 80 mg PO QAM clonidine HCl 0.1 mg tablet 0.1 mg PO BID Patient Comments: Take 1 tablet by mouth twice a day methadone 40 mg Tablet,Soluble 70 mg PO QHS clonidine HCl 0.2 mg tablet 0.2 mg PO QHS Patient Comments: TAKE ONE TABLET BY MOUTH AT BEDTIME Discharge Instructions Instructions: Polysubstance Abuse (ED), Anxiety (ED) Additional Instructions: [facility] in recovery we will follow-up with you this week. I will help assist you with counseling and medication therapy. Return to ED for thoughts of hurting yourself or others. You have had your 70 milligrams of methadone today. Medical Decision Making The patient has been appropriate in the ED. He saw Jeffery from [facility] as well as Anusha from [facility]. He has follow-up in place and has been given 70 mg of methadone prior to discharge. He will follow- up with both services as instructed. He will return to the ED for thoughts of hurting himself or others. Medical Records Medical records reviewed: Yes I reviewed the patient's medical records. HPI General Mode of arrival: ambulatory . Date/Time Provider Initiated Documentation: 09/20/23 20:49 . Limitations to Documentation: no limitations . Information obtained by: patient . History of Present Illness No relieving factors improve symptom(s), No exacerbating factors reported . Related Data Home Medications Medication Instructions Recorded Confirmed clonidine HCl 0.1 mg tablet 0.1 mg PO BID 09/05/23 09/20/23 clonidine HCl 0.2 mg tablet 0.2 mg PO QHS 09/05/23 09/20/23 methadone 40 mg soluble tablet 70 mg PO QHS 09/05/23 09/05/23 methadone 40 mg soluble tablet 80 mg PO QAM 09/05/23 09/05/23 Allergies Allergy/AdvReac Type Severity Reaction Status Date / Time No Known Allergies Allergy Unverified 09/21/23 08:07 General Stated Complaint: RX Refill HALLE: 4 PFSH All Active Problems (Updated 09/21/23 @ 13:25 by Ingrid More MD) Anxiety (Chronic) Substance abuse (Acute) Auditory hallucination (Acute) Incidental pulmonary nodule (Acute) Opiate withdrawal (Acute) Cocaine withdrawal (Acute) Cocaine abuse (Acute) Lumbar contusion (Acute) Concussion (Acute) Social History Smoking/Tobacco Use Status: Current every day Tobacco Type: cigarettes and e- cigarettes Smoking risk assessment performed?: Yes Alcohol Intake: former Drug use: Binges Substance use type: crack/cocaine Details: methadone and cocaine Housing: homeless Do you feel safe at home: Yes Do you feel safe in your relationship?: Yes Course Vital Signs Vital signs: Vital Signs Pulse 130 H 09/20/23 20:50 Respiratory Rate 15 09/20/23 20:50 Blood Pressure 149/104 H 09/20/23 20:50 Pulse Oximetry 96 09/20/23 20:50 Pulse 130 H 09/20/23 20:50 Respiratory Rate 15 09/20/23 20:50 Respiratory Effort Normal 09/21/23 02:43 Blood Pressure 149/104 H 09/20/23 20:50 Blood Pressure Position Sitting 09/20/23 20:50 Pulse Oximetry 96 09/20/23 20:50 Oxygen Delivery Method Room Air 09/20/23 20:50 Oxygen Flow Rate 0 09/20/23 20:50 Sign Out Sign Out Data: Sign Out Comment: pending psych eval for auditory hallucinations Last updated by Cong Hernandez MD at 09/20/23 22:04 Sign Out Comment: Patient stable throughout the night. No interventions needed. Pending mental health reassessment this morning Last updated by Zachery Wren DO at 09/21/23 07:21
== END 2023-09-21 13:41 | disposition home or self-care (01) ==
PROVIDERS: Emergency Provider Emergency Medicine
DX: F41.9 Anxiety disorder, unspecified; F19.10 Other psychoactive substance abuse, uncomplicated; R44.0 Auditory hallucinations; F11.90 Opioid use, unspecified, uncomplicated
CPT/HCPCS: 99283

== ENCOUNTER 2023-09-21 20:21 | Emergency (ER) | payer MEDICAID, SELFPAY ==
[2023-09-21 20:26] VITALS: BP 160/110; PULSE 75; RESP 18; TEMP 36.8; O2SAT 96
--- NOTE | 2023-09-21 20:30 | W.ED.GENAD ---
Discharge Plan Discharge Details Chief Complaint: RX Refill Clinical Impression: Methadone use Primary Care Provider: Unknown,Unknown ED Provider: Zachery Wren Home Meds and New Rx's Prescriptions: No Action methadone 40 mg Tablet,Soluble 80 mg PO QAM clonidine HCl 0.1 mg tablet 0.1 mg PO BID Patient Comments: Take 1 tablet by mouth twice a day methadone 40 mg Tablet,Soluble 70 mg PO QHS clonidine HCl 0.2 mg tablet 0.2 mg PO QHS Patient Comments: TAKE ONE TABLET BY MOUTH AT BEDTIME Discharge Instructions Instructions: Methadone (By mouth) Additional Instructions: Please follow-up closely with your mental health advocates, the methadone clinic for a morning dose, and your support system. If you notice any worsening of your symptoms, or any new symptoms such as vomiting, diarrhea, fever, chills, shortness of breath, chest pain, numbness, weakness, or fainting , please return immediately to the emergency department for reevaluation. Please follow up with your primary care provider as soon as possible for reassessment and reevaluation. As always, it was a pleasure participating in your medical care today. Medical Decision Making 33-year-old male with past medical history of anxiety, substance abuse, cocaine induced myocardial infarction, occasional auditory hallucinations presents today for evaluation of second methadone dosing. It is currently the weekend, the patient was admitted inpatient here over the weekend for mental health assessment. He states at this time that he is stable from mental health perspective. He denies any homicidal or suicidal ideations. He states that he is only here for his nighttime methadone dose. No other complaints at this time. Exam demonstrates a stable and well-appearing male. No homicidal or suicidal ideations. Nighttime dose of methadone will be administered. We offered additional resources here if needed for counseling or support, patient does not have any desire for additional support or help at this time. I have extensively reviewed the treatment plan and discharge instructions with the patient. I have addressed all patient concerns at this time. The patient was made aware of what symptoms to monitor for that would warrant a return to the emergency department. Discussed the plan with the patient, they demonstrate verbal understanding and agreement with our assessment and plan at this time. The documentation in this chart was dictated using [employer] dictation software. Please excuse any dictation errors. HPI General Date/Time Provider Initiated Documentation: 09/21/23 20:29. HPI Narrative: 33-year-old male with past medical history of anxiety, substance abuse, cocaine induced myocardial infarction, occasional auditory hallucinations presents today for evaluation of second methadone dosing. It is currently the weekend, the patient was admitted inpatient here over the weekend for mental health assessment. He states at this time that he is stable from mental health perspective. He denies any homicidal or suicidal ideations. He states that he is only here for his nighttime methadone dose. No other complaints at this time. Related Data Home Medications Medication Instructions Recorded Confirmed clonidine HCl 0.1 mg tablet 0.1 mg PO BID 09/05/23 09/21/23 clonidine HCl 0.2 mg tablet 0.2 mg PO QHS 09/05/23 09/21/23 methadone 40 mg soluble tablet 70 mg PO QHS 09/05/23 09/21/23 methadone 40 mg soluble tablet 80 mg PO QAM 09/05/23 09/21/23 Allergies Allergy/AdvReac Type Severity Reaction Status Date / Time No Known Allergies Allergy Unverified 09/21/23 20:30 General Stated Complaint: RX Refill HALLE: 5 Review of Systems All systems reviewed & are unremarkable except as noted in HPI and below PFSH All Active Problems Methadone use (Acute) Anxiety (Chronic) Substance abuse (Acute) Auditory hallucination (Acute) Incidental pulmonary nodule (Acute) Opiate withdrawal (Acute) Cocaine withdrawal (Acute) Cocaine abuse (Acute) Lumbar contusion (Acute) Concussion (Acute) Social History Smoking/Tobacco Use Status: Current every day Tobacco Type: cigarettes and e-cigarettes Smoking risk assessment performed?: Yes Alcohol Intake: former Drug use: Binges Substance use type: crack/cocaine Details: methadone and cocaine Housing: homeless Do you feel safe at home: Yes Do you feel safe in your relationship?: Yes Exam Narrative Exam Narrative: 1.Const: Well-nourished, Well-developed, appearing stated age 2.Eyes: PERRL, no conjunctival injection, and symmetrical lids. 3.ENT: Atraumatic external nose and ears. Moist MM. Neck: Symmetric, trachea midline, No thyromegaly. 4.CVS: +S1/S2, No murmurs or gallops. Peripheral pulses 2+ and equal in all extremities. Brisk capillary refill in all extremities. 5.RESP: Unlabored respiratory effort. Clear to auscultation bilaterally. No wheezes rales or rhonchi 6.GI: Soft, Nontender/Nondistended, No hepatosplenomegaly. No guarding or rebound. 7.MSK: Normocephalic/Atraumatic, Extremities w/o deformity or ttp No cyanosis or clubbing, Normal movement of all extremities 8.Skin: Warm, Dry. No rashes or lesions. 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 Sensation grossly intact, no focal neurologic deficits. 10.Psych: (AAO) x3. Appropriate mood and affect Course Vital Signs Vital signs: Vital Signs Temperature 36.8 C 09/21/23 20:26 Pulse 75 09/21/23 20:26 Respiratory Rate 18 09/21/23 20:26 Blood Pressure 160/110 H 09/21/23 20:26 Pulse Oximetry 96 09/21/23 20:26 Temperature 36.8 C 09/21/23 20:26 Temperature Source Skin 09/21/23 20:26 Pulse 75 09/21/23 20:26 Respiratory Rate 18 09/21/23 20:26 Respiratory Effort Normal 09/21/23 20:28 Blood Pressure 160/110 H 09/21/23 20:26 Blood Pressure Position Sitting 09/21/23 20:26 Pulse Oximetry 96 09/21/23 20:26 Oxygen Delivery Method Room Air 09/21/23 20:26 Oxygen Flow Rate 0 09/21/23 20:26
[2023-09-21] MEDS: Methadone 10 MG TAB 70 MG PO (20:41)
== END 2023-09-21 20:41 ==
LOC: ER 20:33
PROVIDERS: Emergency Provider Student in an Organized Health Care Education/Training Program
DX: F11.90 Opioid use, unspecified, uncomplicated (principal)
CPT/HCPCS: 99283; 99284

== ENCOUNTER 2023-09-21 21:58 | Emergency (ER) | payer MEDICAID, SELFPAY ==
[2023-09-21 22:02] VITALS: BP 142/78; PULSE 88; RESP 18; TEMP 36.5; O2SAT 98
--- NOTE | 2023-09-21 22:13 | W.ED.GENAD ---
Discharge Plan Discharge Details Chief Complaint: PsychEval Primary Care Provider: Unknown,Unknown ED Provider: Zachery Wren Home Meds and New Rx's Prescriptions: No Action methadone 40 mg Tablet,Soluble 80 mg PO QAM clonidine HCl 0.1 mg tablet 0.1 mg PO BID Patient Comments: Take 1 tablet by mouth twice a day methadone 40 mg Tablet,Soluble 70 mg PO QHS clonidine HCl 0.2 mg tablet 0.2 mg PO QHS Patient Comments: TAKE ONE TABLET BY MOUTH AT BEDTIME Medical Decision Making 33-year-old male with past medical history of anxiety, substance abuse, cocaine induced myocardial infarction, occasional auditory hallucinations presents for mental health assistance. Please see note from 09/20/2023 by myself. I admitted him overnight at that time, and then the patient was discharged in the morning. He subsequently was again here last night, I kept him overnight again and was reassessed by mental health in the morning and the patient decided to leave on his own volition in the morning. He returns again today with similar complaints of continued auditory hallucinations. He denies any new modifying factors otherwise. He denies drug use tonight to me, but I am not certain if this is entirely accurate. No other complaints. Exam demonstrates no significant abnormalities. I had a very benjy and sitdown discussion with the patient that we have made repeated efforts to help him get to a place of mental wellbeing, including our desires for admission, for both drug rehabilitation and also his mental health challenges. I made it clear that it is up to the patient to have his own personal medical and psychiatric accountability in regards to him being willing to take the next step towards wellness. Patient agrees to stay overnight again. Mental health advocate Jeffery was in the room with me during this discussion, and he agrees on the plan. It will continue to be my recommendation that the patient stays here voluntarily with the goal of admission to a mental health facility that can deal with his drug rehabilitation as well as his auditory hallucinations and PTSD from previous and prior events. Patient and mental health agree with plan. Patient otherwise denies any homicidal or suicidal ideations. He is safe to remain here in the ED. HPI General Date/Time Provider Initiated Documentation: 09/21/23 22:12. HPI Narrative: 33-year-old male with past medical history of anxiety, substance abuse, cocaine induced myocardial infarction, occasional auditory hallucinations presents for mental health assistance. Please see note from 09/20/2023 by myself. I admitted him overnight at that time, and then the patient was discharged in the morning. He subsequently was again here last night, I kept him overnight again and was reassessed by mental health in the morning and the patient decided to leave on his own volition in the morning. He returns again today with similar complaints of continued auditory hallucinations. He denies any new modifying factors otherwise. He denies drug use tonight to me, but I am not certain if this is entirely accurate. No other complaints. Related Data Home Medications Medication Instructions Recorded Confirmed clonidine HCl 0.1 mg tablet 0.1 mg PO BID 09/05/23 09/21/23 clonidine HCl 0.2 mg tablet 0.2 mg PO QHS 09/05/23 09/21/23 methadone 40 mg soluble tablet 70 mg PO QHS 09/05/23 09/21/23 methadone 40 mg soluble tablet 80 mg PO QAM 09/05/23 09/21/23 Allergies Allergy/AdvReac Type Severity Reaction Status Date / Time No Known Allergies Allergy Unverified 09/21/23 20:30 General Stated Complaint: PsychEval HALLE: 2 Review of Systems All systems reviewed & are unremarkable except as noted in HPI and below PFSH All Active Problems Methadone use (Acute) Anxiety (Chronic) Substance abuse (Acute) Auditory hallucination (Acute) Incidental pulmonary nodule (Acute) Opiate withdrawal (Acute) Cocaine withdrawal (Acute) Cocaine abuse (Acute) Lumbar contusion (Acute) Concussion (Acute) Social History Smoking/Tobacco Use Status: Current every day Tobacco Type: cigarettes and e-cigarettes Smoking risk assessment performed?: Yes Alcohol Intake: former Drug use: Binges Substance use type: crack/cocaine Details: methadone and cocaine Housing: homeless Do you feel safe at home: Yes Do you feel safe in your relationship?: Yes Exam Narrative Exam Narrative: 1.Const: Well-nourished, Well-developed, appearing stated age 2.Eyes: PERRL, no conjunctival injection, and symmetrical lids. 3.ENT: Atraumatic external nose and ears. Moist MM. Neck: Symmetric, trachea midline, No thyromegaly. 4.CVS: +S1/S2, No murmurs or gallops. Peripheral pulses 2+ and equal in all extremities. Brisk capillary refill in all extremities. 5.RESP: Unlabored respiratory effort. Clear to auscultation bilaterally. No wheezes rales or rhonchi 6.GI: Soft, Nontender/Nondistended, No hepatosplenomegaly. No guarding or rebound. 7.MSK: Normocephalic/Atraumatic, Extremities w/o deformity or ttp No cyanosis or clubbing, Normal movement of all extremities 8.Skin: Warm, Dry. No rashes or lesions. 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 Sensation grossly intact, no focal neurologic deficits. 10.Psych: (AAO) x3. Appropriate mood and affect Course Vital Signs Vital signs: Vital Signs Temperature 36.5 C 09/21/23 22:02 Pulse 88 09/21/23 22:02 Respiratory Rate 18 09/21/23 22:02 Blood Pressure 142/78 H 09/21/23 22:02 Pulse Oximetry 98 09/21/23 22:02 Temperature 36.5 C 09/21/23 22:02 Temperature Source Tympanic 09/21/23 22:02 Pulse 88 09/21/23 22:02 Respiratory Rate 18 09/21/23 22:02 Blood Pressure 142/78 H 09/21/23 22:02 Blood Pressure Position Sitting 09/21/23 22:02 Pulse Oximetry 98 09/21/23 22:02 Oxygen Delivery Method Room Air 09/21/23 22:02 Oxygen Flow Rate 0 09/21/23 22:02 Pain Level 0 09/21/23 22:02
[2023-09-21] MEDS: OLANZapine 10 MG TAB 20 MG PO (23:10)
[2023-09-21] MEDS: Normal Saline 1,000 ML 1000 ML IV (23:10)
[2023-09-21 23:19] LABS: BE (Venous) 6 mmol/L (-2-3); HCO3 (Venous) 31 mmol/L (23-28); O2 Sat (Venous) 68 %; TCO2 (Venous) 28 mmol/L (24-29); pCO2 (Venous) 53 mmHg (41-51); pH (Venous) 7.37 (7.31-7.41); pO2 (Venous) 36 mmHg
[2023-09-21 23:21] LABS: Abs Immature Grans 0.03 10^3/uL (0.0-0.06); Absolute Basophil Count 0.03 10^3/uL (0.0-0.2); Absolute Eosinophil Count 0.08 10^3/uL (0.0-0.7); Absolute Lymphocyte Count 1.84 10^3/uL (1.2-3.4); Absolute Monocyte Count 0.87 10^3/uL (0.1-0.8); Basophils % 0.5; Eosinophils % 1.2; HCT 38.8 % (40.0-50.0); HGB 12.5 g/dL (13.5-17.5); Immature Grans % 0.5; Lymphocytes % 27.7; MCH 28.7 pg (27.0-33.0); MCHC 32.2 % (32.0-36.0); MCV 89 fL (80-95); MPV 10.1 fL (8.0-11.0); Monocytes % 13.1; Platelet Count 174 10^3/uL (130-400); RBC 4.35 10^6/uL (4.36-5.78); RDW 13.2 % (11.8-14.1); RDW-SD 43.4 fL; WBC 6.65 10^3/uL (4.4-10.8)
[2023-09-21 23:48] LABS: ALT 235 U/L (16-63); AST 103 U/L (15-37); Albumin 3.8 g/dL (3.4-5.0); Alkaline Phosphatase 75 U/L (46-116); Anion Gap 6.5 mmol/L (3-11); BUN 13 mg/dL (7-18); Bilirubin, Total 0.3 mg/dL (0.2-1.0); CO2 29.5 mmol/L (21.0-32.0); CREATININE 0.9 mg/dL (0.70-1.30); Calcium 9.2 mg/dL (8.5-10.1); Chloride 105 mmol/L (98-107); ETHANOL BLOOD < 3.0 mg/dL (<10); Estimated GFR 115.65 (mL/min/1.73m2); Glucose 174 mg/dL (74-106); Potassium 3.6 mmol/L (3.5-5.1); Sodium 141 mmol/L (136-145); TSH (W/Ref FT4) 1.43 uIU/mL (0.36-3.74); Total Protein 7.4 g/dL (6.4-8.2)
[2023-09-21 23:57] LABS: Acetaminophen < 2 ug/mL (10-30); Salicylate < 2.8 mg/dL (<2.8)
--- NOTE | 2023-09-22 09:22 | NUR.NOTE ---
Nursing Note: pt continues to rest on bed with eyes closed, respirations even and unlabored.
[2023-09-22 10:42] VITALS: BP 100/61; PULSE 63; RESP 20; TEMP 37.2; O2SAT 99
[2023-09-22] MEDS: Methadone Liquid 10 MG/ML 70 MG PO ×2 (11:02→21:52)
--- NOTE | 2023-09-22 14:22 | NUR.NOTE ---
Nursing Note: pt has been cooperative with care, moved to Zone B after mental health evaluation. still denying any SI/HI.
--- NOTE | 2023-09-22 14:37 | PDOC.CMSAFE ---
Date of service: 09/22/23 Time of Service: 14:37 Care Management Safety Plan Status Status: Voluntary Reason for Wait Reason for Wait: Inpatient Admission Safety Plan Safety Plan: VOLUNTARY FOR INPATIENT PSYCHIATRIC STABILIZATION.? Patient is appropriate in all interactions since arriving at [facility]; Pt has demonstrated appropriate coping and communication skills, has articulated his or her needs and concerns and is fully engaged during staff interactions. Safety plan has been established with patient, and care team, to adhere to patient goals, identify restrictions based on behavioral status, address nutrition, and determine allowed personal belongings, tools for hygiene and personal care. Determine level of activity including ambulation, level of supervision, visitors, and determine privileges based on behaviors and level of engagement by pt. SAFETY PLAN: 1. Will remain in Zone B in Paper Clothes 2. Will remain in room under direct supervision of staff at all times. 3. May have paper cups, plates, finger foods as well as a cardboard spoon with which to eat meals. 4. Follow [facility] Management of the Admitted Behavioral Health Patient policy. 5. Shower permitted in Zone B. 6. No personal belongings-soft items permitted at RN discretion. 7. Visitors-none at this time. 8. Activities: soft cart items approved per RN discretion. 9.? Bathroom privileges in Zone B in the ED. 10. Phone: no contact at this time per his HIPAA. 11. Due to VOLUNTARY status, if patient wishes to leave [facility], staff will contact [facility] Crisis Screener ([phone]) and On-Call Process Plant Operator ([phone]) as soon as possible. In the event of elopement, notify [facility] Police ([phone]). Patient is currently voluntarily at [facility] and seeking inpatient admission when a bed becomes available. [facility] Frontline Digital Marketing Strategist will continue seeking placement. Please contact the Film Writer Process Plant Operator ([phone]) and [facility] Digital Marketing Strategist ([phone]) for any needed changes in the Safety Plan. Safety plan has been provided to interdepartmental care team.
--- NOTE | 2023-09-22 16:02 | NUR.NOTE ---
Lab; Shannan Ritter called, stating that from 09/18/23 an acute hepatitis panel was drawn. The Hep B Core IGm was positive. The antibody was sent out but there was not enough of a sample to check for acute or past infection. Hep B Core Antibody IBm will be drawn and sent today per Dr. Farias. Nursing Note:
--- NOTE | 2023-09-22 16:03 | ED.PROG_ITS ---
Date of service: 09/22/23 Time of Service: 16:03 Medical Decision Making Patient signed out to me by Dr. Wren, please see his documentation regarding earlier ED course. Plan at signout was to await for psychiatric treatment facility placement. Patient has been medically screened and has no acute medical condition identified. Mild transaminitis noted. Patient has remained stable here today. He continues to voluntarily await psychiatric treatment facility placement. Acute hepatitis panel has been ordered and is pending. Lab notes additional blood needed for IgM. Labs to be drawn and sent. Lab Data Lab results reviewed: Yes I reviewed the patient's lab results. Labs: Laboratory Tests Range/Units 09/21/23 09/21/23 23:00 23:10 WBC (4.4-10.8) 10^3/uL 6.65 RBC (4.36-5.78) 10^6/uL 4.35 L Hgb (13.5-17.5) g/dL 12.5 L Hct (40.0-50.0) % 38.8 L MCV (80-95) fL 89 MCH (27.0-33.0) pg 28.7 MCHC (32.0-36.0) % 32.2 RDW (11.8-14.1) % 13.2 Plt Count (130-400) 10^3/uL 174 MPV (8.0-11.0) fL 10.1 Immature Gran % 0.5 Neutrophils % 57.0 Lymphocytes % 27.7 Monocytes % 13.1 Eosinophils % 1.2 Basophils % 0.5 Nucleated RBC % (0.0-0.3) % 0.0 Absolute Neutrophils (1.2-6.7) 10^3/uL 3.80 Absolute Lymphocytes (1.2-3.4) 10^3/uL 1.84 Absolute Monocytes (0.1-0.8) 10^3/uL 0.87 H Absolute Eosinophils (0.0-0.7) 10^3/uL 0.08 Absolute Basophils (0.0-0.2) 10^3/uL 0.03 VBG pH (7.31-7.41) 7.37 VBG pCO2 (41-51) mmHg 53 H VBG pO2 mmHg 36 VBG HCO3 (23-28) mmol/L 31 H VBG Total CO2 (24-29) mmol/L 28 VBG O2 Saturation % 68 VBG Base Excess (-2-3) mmol/L 6 H Sodium (136-145) mmol/L 141 Potassium (3.5-5.1) mmol/L 3.6 Chloride (98-107) mmol/L 105 Carbon Dioxide (21.0-32.0) mmol/L 29.5 Anion Gap (3-11) mmol/L 6.5 BUN (7-18) mg/dL 13 Creatinine (0.70-1.30) mg/dL 0.9 Est GFR (CKD-EPI 2020) (mL/min/1.73m2) 115.65 Glucose (74-106) mg/dL 174 H Calcium (8.5-10.1) mg/dL 9.2 Total Bilirubin (0.2-1.0) mg/dL 0.3 AST (15-37) U/L 103 H ALT (16-63) U/L 235 H Alkaline Phosphatase (46-116) U/L 75 Total Protein (6.4-8.2) g/dL 7.4 Albumin (3.4-5.0) g/dL 3.8 TSH (0.36-3.74) uIU/mL 1.43 Salicylates (<2.8) mg/dL < 2.8 Acetaminophen (10-30) ug/mL < 2 Ethyl Alcohol (<10) mg/dL < 3.0 Sign Out Sign Out Data: Sign Out Comment: Substance abuse, but also auditory hallucinations. Do not recommend discharge. Recommend voluntary admission to inpatient psychiatric. Last updated by Zachery Wren DO at 09/22/23 07:06 Discharge Plan Discharge Details Chief Complaint: PsychEval Clinical Impression: Substance abuse, Auditory hallucination Primary Care Provider: Unknown,Unknown ED Provider: Christian Farias Home Meds and New Rx's Prescriptions: No Action methadone [Methadone Intensol] 10 mg/mL concentrate 70 mg PO Q12H Patient Comments: CONFIRMED WITH [facility] ON 09/22/23 -- GETS A 70/70 SPLIT, LAST DOSED 09/19/23 clonidine HCl 0.1 mg tablet 0.1 mg PO BID Patient Comments: Take 1 tablet by mouth twice a day clonidine HCl 0.2 mg tablet 0.2 mg PO QHS Patient Comments: TAKE ONE TABLET BY MOUTH AT BEDTIME
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
[2023-09-22 16:40] LABS: *AMPHETAMINES SCREEN URINE Negative (Negative); *BARBITURATES SCREEN URINE Negative (Negative); *BENZODIAZEPINES SCREEN URINE Negative (Negative); Cannabinoids THC Negative (Negative); Cocaine Screen,Urine Positive (Negative); METHADONE URINE SCREEN Positive (Negative); OPIATES URINE SCREEN Negative (Negative)
[2023-09-22 16:42] LABS: Tricyclic Antidepressants Negative (Negative)
[2023-09-22] MEDS: cloNIDine 0.1 MG TAB 0.2 MG PO (21:52)
[2023-09-22] MEDS: Prazosin 1 MG CAP PO (21:52)
--- NOTE | 2023-09-22 23:09 | ED.PROG_ITS ---
Date of service: 09/22/23 Time of Service: 16:30 Medical Decision Making 1630-received signout from Dr. Farias. Patient pending voluntary psychiatric admission for hallucinations. At time of signout patient resting in bed with no change in condition. 2100-spoke with patient who is calm and cooperative no change in reported condition. Patient requesting nightly meds which were ordered. Patient otherwise states no further needs pending bed availability Exam Const General: cooperative, no acute distress and not ill appearing Orientation: alert and awake HENMT Mouth: moist mucous membranes Resp Effort & Inspection: normal respiratory effort, able to speak in complete sentences and no respiratory distress Neuro General: patient alert, patient awake and moves all extremities Sign Out Sign Out Data: Sign Out Comment: Substance abuse, but also auditory hallucinations. Do not recommend discharge. Recommend voluntary admission to inpatient psychiatric. Last updated by Zachery Wren DO at 09/22/23 07:06 Sign Out Comment: Patient here for voluntary placement for auditory hallucinations. Patient awaiting available bed. Patient does suffer from polysubstance abuse. He is on methadone. LFTs were elevated. Acute hepatitis panel is pending. Last updated by Christian Farias MD at 09/22/23 16:36 Sign Out Comment: Patient signed out pending voluntary bed placement. Patient is taking nightly meds and resting comfortably in bed at time of signout. No obvious noted change in patient condition from previous documentation. Last updated by Donovan Verdugo NP at 09/22/23 23:19 Discharge Plan Discharge Details Chief Complaint: PsychEval Clinical Impression: Substance abuse, Auditory hallucination Primary Care Provider: Unknown,Unknown ED Provider: Donovan Verdugo Home Meds and New Rx's Prescriptions: No Action methadone [Methadone Intensol] 10 mg/mL concentrate 70 mg PO Q12H Patient Comments: CONFIRMED WITH [facility] ON 09/22/23 -- GETS A 70/70 SPLIT, LAST DOSED 09/19/23 prazosin 1 mg capsule Patient Comments: TAKE ONE CAPSULE BY MOUTH EVERY EVENING WITH 2MG clonidine HCl 0.1 mg tablet 0.1 mg PO BID Patient Comments: Take 1 tablet by mouth twice a day clonidine HCl 0.2 mg tablet 0.2 mg PO QHS Patient Comments: TAKE ONE TABLET BY MOUTH AT BEDTIME
--- NOTE | 2023-09-23 03:02 | NUR.NOTE ---
Assumed care of pt at approx 2300. Pt slept most of this shift w the exception of requesting snack and MD assessment. No behaviour issues noted. 1:1 maintained for pt/staff safety. Pt continues to await placement to outside facility. Pt states all needs met at this time. Will continue to monitor per MD order.
--- NOTE | 2023-09-23 06:48 | NUR.NOTE ---
Assumed care of pt at 0600, pt appears asleep, nothing to report at this time, pt was sleeping when previous Nurse assumed care of pt last night at 2300, no reported changes, RIMAJ
[2023-09-23 07:35] VITALS: BP 126/69; PULSE 61; RESP 18; TEMP 36; O2SAT 95
--- NOTE | 2023-09-23 07:43 | ED.PROG_ITS ---
Date of service: 09/23/23 Time of Service: 07:46 Medical Decision Making This patient was signed out to me. Please see previous notes for H&P and initial eval. In brief, 33yo M with hallucinations presenting for voluntary psychiatric treatment. Medically cleared, pending placement. HepB core Ab IGM and HepC RNA still pending. No issues or concerns during my shift, patient largely resting comfortably. Accepted to [facility] by [facility]LESS OPER[facility], pending transfer (transport likely at 1800 this afternoon). Signed out to oncoming physician, patient pending transfer. A follow on note will only be written if there is a change in patient status or condition. Sign Out Sign Out Data: Sign Out Comment: Substance abuse, but also auditory hallucinations. Do not recommend discharge. Recommend voluntary admission to inpatient psychiatric. Last updated by Zachery Wren DO at 09/22/23 07:06 Sign Out Comment: Patient here for voluntary placement for auditory hallucinations. Patient awaiting available bed. Patient does suffer from polysubstance abuse. He is on methadone. LFTs were elevated. Acute hepatitis panel is pending. Last updated by Christian Farias MD at 09/22/23 16:36 Sign Out Comment: Patient signed out pending voluntary bed placement. Patient is taking nightly meds and resting comfortably in bed at time of signout. No obvious noted change in patient condition from previous documentation. Last updated by Donovan Verdugo NP at 09/22/23 23:19 Sign Out Comment: The patient is stable throughout the night. No interventions needed. I did go and evaluate the patient again during the evening and he was doing well and continues to agree with the plan. Pending placement voluntarily. Last updated by Zachery Wren DO at 09/23/23 07:13 Discharge Plan Disposition Patient Disposition: Psychiatric Hospital/Unit Specific Psychiatric Facility: [facility] Condition: Serious Discharge Details Clinical Impression: Substance abuse, Auditory hallucination Primary Care Provider: Unknown,Unknown ED Provider: Deborah Esteban Home Meds and New Rx's Prescriptions: No Action methadone [Methadone Intensol] 10 mg/mL concentrate 70 mg PO Q12H Patient Comments: CONFIRMED WITH [facility] ON 09/22/23 -- GETS A 70/70 SPLIT, LAST DOSED 09/19/23 prazosin 1 mg capsule Patient Comments: TAKE ONE CAPSULE BY MOUTH EVERY EVENING WITH 2MG clonidine HCl 0.1 mg tablet 0.1 mg PO BID Patient Comments: Take 1 tablet by mouth twice a day clonidine HCl 0.2 mg tablet 0.2 mg PO QHS Patient Comments: TAKE ONE TABLET BY MOUTH AT BEDTIME
[2023-09-23] MEDS: Methadone Liquid 10 MG/ML 70 MG PO (08:19)
--- NOTE | 2023-09-23 10:21 | PDOC.CMSAFE ---
Date of service: 09/23/23 Time of Service: 10:22 Care Management Safety Plan Status Status: Voluntary Reason for Wait Reason for Wait: Inpatient Admission Safety Plan Safety Plan: VOLUNTARY FOR INPATIENT PSYCHIATRIC STABILIZATION.? Patient is appropriate in all interactions since arriving at [facility]; Pt has demonstrated appropriate coping and communication skills, has articulated his or her needs and concerns and is fully engaged during staff interactions. Safety plan has been established with patient, and care team, to adhere to patient goals, identify restrictions based on behavioral status, address nutrition, and determine allowed personal belongings, tools for hygiene and personal care. Determine level of activity including ambulation, level of supervision, visitors, and determine privileges based on behaviors and level of engagement by pt. SAFETY PLAN: 1. Will remain in Zone B in Paper Clothes 2. Will remain in room under direct supervision of staff at all times. 3. May have paper cups, plates, finger foods as well as a cardboard spoon with which to eat meals. 4. Follow [facility] Management of the Admitted Behavioral Health Patient policy. 5. Shower permitted in Zone B. 6. No personal belongings-soft items permitted at RN discretion. 7. Visitors-none at this time. 8. Activities: soft cart items, television and other activities at RN discretion. 9.? Bathroom privileges with escort in ED, available without restriction in Zone B. 10. Phone: no contact at this time per his HIPAA. 11. Due to VOLUNTARY status, if patient wishes to leave [facility], staff will contact [facility] Crisis Screener ([phone]) and On-Call Motorcycle Service Technician ([phone]) as soon as possible. In the event of elopement, notify [facility] Police ([phone]). Patient is currently voluntarily at [facility] and seeking inpatient admission when a bed becomes available. [facility] Frontline Certified Master Safe Technician will continue seeking placement. Please contact the Health Commissioner Motorcycle Service Technician ([phone]) and [facility] Certified Master Safe Technician ([phone]) for any needed changes in the Safety Plan. Safety plan has been provided to interdepartmental care team.
--- NOTE | 2023-09-23 10:45 | NUR.NOTE ---
patient on bed with eyes closed. I made a plan with RADAMES to bring the tray in at lunch. RADAMES reports no change at this time. CLB
--- NOTE | 2023-09-23 12:12 | NUR.NOTE ---
Report given to Shea @ [facility]
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
--- NOTE | 2023-09-23 14:30 | NUR.NOTE ---
Patient resting in bed quietly, no updates from [facility]
--- NOTE | 2023-09-24 11:16 | NUR.NOTE ---
Accessed Pts chart to check HIPPA directives as the Care Bed that he stays in was looking for him. Pt wishes noone to be talked to.
[2023-09-24 21:58] LABS: HBc IgM Ab, S Negative (Negative)
== END 2023-09-23 18:47 ==
PROVIDERS: Student in an Organized Health Care Education/Training Program; Emergency Provider Student in an Organized Health Care Education/Training Program
DX: R41.0 Disorientation, unspecified (principal); F22 Delusional disorders; R94.31 Abnormal electrocardiogram [ECG] [EKG]
CPT/HCPCS: 00123; 36415; 80053; 80307; 82805; 96127; 96360; 99284; 80320; 80329; 84443; 85025; 86705

== ENCOUNTER 2023-09-30 17:52 | Emergency (ER) | payer MEDICAID, SELFPAY ==
[2023-09-30 17:55] VITALS: PULSE 100; RESP 20; TEMP 36.2; O2SAT 99
--- NOTE | 2023-09-30 18:52 | W.ED.GENAD ---
Discharge Plan Disposition Patient Disposition: Home Condition: Stable Discharge Details Clinical Impression: Toothache Primary Care Provider: None,None ED Provider: Shakira Joe Home Meds and New Rx's Prescriptions: New amoxicillin-pot clavulanate 875-125 mg tablet 1 tab PO BID 7 Days Qty: 14 0RF Rx Instructions: Take one tablet by mouth twice daily x 7 days No Action methadone [Methadone Intensol] 10 mg/mL concentrate 70 mg PO Q12H Patient Comments: CONFIRMED WITH [facility] ON 09/22/23 -- GETS A 70/70 SPLIT, LAST DOSED 09/19/23 prazosin 1 mg capsule 2 mg PO ONCE Patient Comments: TAKE ONE CAPSULE BY MOUTH EVERY EVENING WITH 2MG clonidine HCl 0.1 mg tablet 0.1 mg PO BID Patient Comments: Take 1 tablet by mouth twice a day clonidine HCl 0.2 mg tablet 0.2 mg PO QHS Patient Comments: TAKE ONE TABLET BY MOUTH AT BEDTIME Discharge Instructions Instructions: Toothache (ED) Additional Instructions: Take the antibiotics as directed. Take it with yogurt or a probiotic. You were given the first dose here. You do need to see a dentist. Please take Tylenol or Ibuprofen with food every 4-6 hours as needed for pain and swelling. Rinse your mouth out after eating or drinking anything. Consider quitting smoking if you smoke. Use the HurriCaine gel to the affected area up to 3 times daily as needed. Follow up with primary care provider in 3-5 days. Return to ED sooner if any worsening or concerns. Increase oral fluids. Referrals: Benja Vera DO [OSTEOPATHIC DOCTOR] - 1 week Discharge Data Discharge Date/Time-TO BE ENTERED AT DEPARTURE: 09/30/23 19:06 Medical Decision Making 32-year-old male presents to the ER with a chief complaint of left upper molar dental pain which began a couple days ago. He reports he is got a history of a root canal and to that tooth. He thinks that he may have chipped it. No surrounding erythema, abscess or drainage noted. No fever ear pain or other associated symptoms. He is speaking in full sentences. He has been taking Tylenol ibuprofen at home. No area of fluctuance. He does take methadone daily. He does not have a dentist. Patient was given benzocaine HurriCaine gel, dental wax and Augmentin and dental resources. He does report sensitivity to heat and cold. This text was generated using [employer] Systemsation system, please disregard any oddities of phrase or misspellings. HPI General Mode of arrival: ambulatory. Date/Time Provider Initiated Documentation: 09/30/23 18:40. Limitations to Documentation: no limitations. Information obtained by: patient, RN notes reviewed and old records reviewed. Related Data Home Medications Medication Instructions Recorded Confirmed clonidine HCl 0.1 mg tablet 0.1 mg PO BID 09/05/23 09/30/23 clonidine HCl 0.2 mg tablet 0.2 mg PO QHS 09/05/23 09/30/23 methadone 10 mg/mL oral 70 mg PO Q12H 09/22/23 09/30/23 concentrate (Methadone Intensol) prazosin 1 mg capsule 2 mg PO ONCE 09/22/23 09/30/23 amoxicillin 875 mg-potassium 1 tab PO BID dental infection 7 09/30/23 clavulanate 125 mg tablet days #14 tabs Previous Rx's Medication Instructions Recorded amoxicillin 875 mg-potassium 1 tab PO BID dental infection 7 09/30/23 clavulanate 125 mg tablet days #14 tabs Allergies Allergy/AdvReac Type Severity Reaction Status Date / Time No Known Allergies Allergy Unverified 09/30/23 17:56 General Stated Complaint: DentalOral HALLE: 4 Review of Systems Constitutional Constitutional: Reports system reviewed and no additional complaints, except as documented, Denies chills and Denies fever(s) ENT Ears, Nose, Mouth, and Throat: Reports as per HPI, Reports dental pain, Denies dysphagia, Denies otalgia, Denies hoarseness, Denies epistaxis, Denies mouth lesions, Denies mouth pain, Denies neck mass, Denies neck pain, Denies odynophagia and Denies throat swelling Respiratory Respiratory: Reports system reviewed and no additional complaints, except as documented Gastrointestinal Gastrointestinal: Reports system reviewed and no additional complaints, except as documented, Denies dysphagia and Denies odynophagia Musculoskeletal Musculoskeletal: Denies neck pain Allergic/Immunologic Allergic/Immunologic: Denies throat swelling PFSH All Active Problems (Updated 09/30/23 @ 23:33 by Shakira Joe NP) Toothache (Acute) Methadone use (Acute) Anxiety (Chronic) Substance abuse (Acute) Auditory hallucination (Acute) Incidental pulmonary nodule (Acute) Opiate withdrawal (Acute) Cocaine withdrawal (Acute) Cocaine abuse (Acute) Social History Smoking/Tobacco Use Status: Current every day Tobacco Type: cigarettes and e-cigarettes Smoking risk assessment performed?: Yes Alcohol Intake: former Drug use: Binges Substance use type: crack/cocaine Details: methadone and cocaine Housing: homeless Do you feel safe at home: Yes Do you feel safe in your relationship?: Yes Exam HENMT Head: normal to inspection Ears: hearing grossly normal bilaterally, external ears normal and TM's normal bilaterally General nose exam: external nose normal Teeth image: 1. Broken molar no surrounding area of fluctuance no drainage noted. Throat: posterior oropharynx normal and uvula midline Course Vital Signs Vital signs: Vital Signs Temperature 36.2 C L 09/30/23 17:55 Pulse 100 H 09/30/23 17:55 Respiratory Rate 20 09/30/23 17:55 Pulse Oximetry 99 09/30/23 17:55 Temperature 36.2 C L 09/30/23 17:55 Pulse 100 H 09/30/23 17:55 Respiratory Rate 20 09/30/23 17:55 Respiratory Effort Normal 09/30/23 17:58 Pulse Oximetry 99 09/30/23 17:55 Oxygen Delivery Method Room Air 09/30/23 17:55 Oxygen Flow Rate 0 09/30/23 17:55 Pain Level 7 09/30/23 17:55 PAWSS Have you Been Recently Intoxicated or Drunk Within the Last 30 days?: No Have you Ever Experienced Previous Episodes of Alcohol Withdrawal?: No Have you ever Experienced Withdrawal Seizures?: No Have you ever Experienced Delirium Tremens(DT)s?: No Have you ever undergone Alcohol Rehabilitation Treatment (i.e, inpt ot outpatient treatment programs)?: No Have you ever Experienced Blackouts?: No Have you ever Combined Alcohol with other Downers within the last 90 days?: No Have you ever Combined Alcohol with any other Substance of Abuse during the last 90 days?: No Positive Blood Alcohol level on Presentation? [PCS.BAL]: No Evidence of Increased Autonomic Activity (i.e. HR>120, tremor, sweating, agitation, nausea)?: No Result: 0
[2023-09-30] MEDS: Amox. 875/Clav. 125, 2 TABS/BTL 1 TAB PO (18:59)
[2023-09-30] MEDS: Benzocaine 20% Gel 30 GM JAR MM (19:00)
[2023-09-30] MEDS: Amoxicillin 875/Clav. 125 TAB PO (19:00)
== END 2023-09-30 19:06 | disposition home or self-care (01) ==
PROVIDERS: Emergency Provider Registered Nurse Emergency
DX: K08.89 Other specified disorders of teeth and supporting structures (principal); Z72.0 Tobacco use
CPT/HCPCS: 99283

== ENCOUNTER 2023-10-02 22:27 | Emergency (ER) | payer MEDICAID, SELFPAY ==
[2023-10-02 22:29] VITALS: BP 139/95; PULSE 86; RESP 18; TEMP 36.9; O2SAT 96
--- NOTE | 2023-10-02 22:37 | W.ED.GENAD ---
Discharge Plan Disposition Patient Disposition: Home Condition: Improving Discharge Details Chief Complaint: PsychEval Clinical Impression: Auditory hallucinations Primary Care Provider: None,None ED Provider: Ad Riley Home Meds and New Rx's Prescriptions: No Action methadone [Methadone Intensol] 10 mg/mL concentrate 70 mg PO Q12H Patient Comments: CONFIRMED WITH [facility] ON 09/22/23 -- GETS A 70/70 SPLIT, LAST DOSED 09/19/23 prazosin 1 mg capsule 2 mg PO ONCE Patient Comments: TAKE ONE CAPSULE BY MOUTH EVERY EVENING WITH 2MG amoxicillin-pot clavulanate 875-125 mg tablet 1 tab PO BID 7 Days Qty: 14 0RF Rx Instructions: Take one tablet by mouth twice daily x 7 days clonidine HCl 0.1 mg tablet 0.1 mg PO BID Patient Comments: Take 1 tablet by mouth twice a day clonidine HCl 0.2 mg tablet 0.2 mg PO QHS Patient Comments: TAKE ONE TABLET BY MOUTH AT BEDTIME Discharge Instructions Instructions: Psychiatric Hallucinations (ED) Additional Instructions: Please follow-up with safety plan recommendations. Please return to the emergency department if you are having worsening or persistent symptoms. Medical Decision Making 33-year-old male history of substance abuse, presents endorsing auditory hallucinations, hears the voice of a little girl and a man talking about him feels as if they are out to get him, denies SI or HI, denies current drug use. No recent injuries no recent illness. Patient is hemodynamically stable afebrile nontoxic nonmeningeal neurologically intact. Patient amenable to mental health evaluation. Will obtain urine drug screen. Will provide anxiolysis in the form of lorazepam p.o. Once med rec is complete we will start patient on his home medications. We will contact with the [facility] and human services for evaluation patient will be moved to a psychiatric zone B. 12: 42 patient be evaluated by [facility] services, will be sent home with a safety plan. No acute distress. Calm cooperative. HPI General Date/Time Provider Initiated Documentation: 10/02/23 22:31. HPI Narrative: 33-year-old male history of substance abuse, presents with auditory hallucinations over the past several days to weeks, hears the voice of a little girl and a man whispering, is unable to discern exactly what they are saying but feels as if they are out to get him; no SI no HI. Denies active drug use. Related Data Home Medications Medication Instructions Recorded Confirmed clonidine HCl 0.1 mg tablet 0.1 mg PO BID 09/05/23 09/30/23 clonidine HCl 0.2 mg tablet 0.2 mg PO QHS 09/05/23 09/30/23 methadone 10 mg/mL oral 70 mg PO Q12H 09/22/23 09/30/23 concentrate (Methadone Intensol) prazosin 1 mg capsule 2 mg PO ONCE 09/22/23 09/30/23 amoxicillin 875 mg-potassium 1 tab PO BID dental infection 7 09/30/23 clavulanate 125 mg tablet days #14 tabs Previous Rx's Medication Instructions Recorded amoxicillin 875 mg-potassium 1 tab PO BID dental infection 7 09/30/23 clavulanate 125 mg tablet days #14 tabs Allergies Allergy/AdvReac Type Severity Reaction Status Date / Time No Known Allergies Allergy Unverified 09/30/23 17:56 General Stated Complaint: PsychEval HALLE: 2 Review of Systems Narrative: Review of Systems Constitutional: negative Eyes: negative ENT: negative Cardiovascular: negative Respiratory: negative Gastrointestinal: negative : negative Musculoskeletal: negative Skin: negative Neurologic: negative Psych: Auditory hallucinations PFSH All Active Problems (Updated 10/03/23 @ 00:44 by Ad Riley MD) Auditory hallucinations (Acute) Toothache (Acute) Methadone use (Acute) Anxiety (Chronic) Substance abuse (Acute) Auditory hallucination (Acute) Incidental pulmonary nodule (Acute) Opiate withdrawal (Acute) Cocaine withdrawal (Acute) Cocaine abuse (Acute) Social History Smoking/Tobacco Use Status: Current every day Tobacco Type: e-cigarettes Smoking risk assessment performed?: Yes Alcohol Intake: former Drug use: Occasionally Substance use type: crack/cocaine Details: methadone and cocaine Housing: homeless Do you feel safe at home: Yes Do you feel safe in your relationship?: Yes Exam Narrative Exam Narrative: Physical Examination General: alert, awake, cooperative, resting comfortably, no acute distress HEENT: normocephalic, atraumatic; PERRL, EOM intact, conjunctiva normal; no nasal discharge; moist mucous membranes, oral and pharyngeal mucosa normal, tolerating secretions Neck: supple, trachea midline; full ROM Chest: normal to inspection Respiratory: normal respiratory effort, speaking in full sentences, clear to auscultation, no wheezing, rales or rhonchi Cardiac: regular rate, regular rhythm, S1S2 intact, no murmurs rubs or gallops GI: abdomen soft, non-tender, non-distended; no palpable mass or hepatosplenomegaly Skin: no lesions, rashes or trauma appreciated Neuro: AAOx3, normal speech, moving all extremities Psych: Mildly anxious, no SI no HI, reports auditory hallucination Course Vital Signs Vital signs: Vital Signs Temperature 36.9 C 10/02/23 22:29 Pulse 86 10/02/23 22:29 Respiratory Rate 18 10/02/23 22:29 Blood Pressure 139/95 H 10/02/23 22:29 Pulse Oximetry 96 10/02/23 22:29 Temperature 36.9 C 10/02/23 22:29 Pulse 86 10/02/23 22:29 Respiratory Rate 18 10/02/23 22:29 Respiratory Effort Normal 10/02/23 22:35 Blood Pressure 139/95 H 10/02/23 22:29 Pulse Oximetry 96 10/02/23 22:29 Oxygen Delivery Method Room Air 10/02/23 22:29 Oxygen Flow Rate 0 10/02/23 22:29
[2023-10-02] MEDS: LORazepam 1 MG TAB PO (23:02)
[2023-10-02 23:25] LABS: *AMPHETAMINES SCREEN URINE Negative (Negative); *BARBITURATES SCREEN URINE Negative (Negative); *BENZODIAZEPINES SCREEN URINE Negative (Negative); Cannabinoids THC Negative (Negative); Cocaine Screen,Urine Positive (Negative); METHADONE URINE SCREEN Positive (Negative); OPIATES URINE SCREEN Negative (Negative)
[2023-10-02 23:26] LABS: Tricyclic Antidepressants Negative (Negative)
[2023-10-03 02:10] VITALS: BP 135/75; PULSE 66; RESP 18; O2SAT 99
== END 2023-10-03 02:27 | disposition home or self-care (01) ==
LOC: ER 10-03 01:05
PROVIDERS: Emergency Provider Emergency Medicine
DX: R44.0 Auditory hallucinations (principal); F17.290 Nicotine dependence, other tobacco product, uncomplicated
CPT/HCPCS: 80307; 99283

== ENCOUNTER 2023-10-06 14:09 | Outpatient (REF) | payer MEDICAID, SELFPAY ==
[2023-10-06 21:45] LABS: ALT 152 U/L (16-63); AST 59 U/L (15-37); Albumin 4.1 g/dL (3.4-5.0); Alkaline Phosphatase 81 U/L (46-116); Anion Gap 7.2 mmol/L (3-11); BUN 13 mg/dL (7-18); Bilirubin, Total 0.3 mg/dL (0.2-1.0); CO2 27.8 mmol/L (21.0-32.0); CREATININE 0.7 mg/dL (0.70-1.30); Calcium 9.4 mg/dL (8.5-10.1); Chloride 102 mmol/L (98-107); Estimated GFR 124.77 (mL/min/1.73m2); Glucose 138 mg/dL (74-106); Potassium 4.6 mmol/L (3.5-5.1); Sodium 137 mmol/L (136-145); Total Protein 7.6 g/dL (6.4-8.2)
[2023-10-08 12:20] LABS: Hepatitis C Ab w Rflx HCV PCR Reactive (Negative)
[2023-10-08 14:26] LABS: HIV-1/2 Ag & Ab Screen Reactive (Negative)
[2023-10-09 11:08] LABS: HCV RNA Qualitative Detected (Undetected)
[2023-10-13 15:01] LABS: HIV 1 Ab Diff Negative (Negative); HIV 2 Ab Diff Negative (Negative)
[2023-10-13 15:04] LABS: HIV 1&2 Ab Final Interpret See Comments
== END 2023-10-06 14:10 | disposition home or self-care (01) ==
LOC: NCHCN 14:09
PROVIDERS: Visit Provider Family Medicine
DX: F41.8 Other specified anxiety disorders (principal); F43.10 Post-traumatic stress disorder, unspecified; F19.20 Other psychoactive substance dependence, uncomplicated
CPT/HCPCS: 80053; 86701; 86702; 86803; 87389; 87522

== ENCOUNTER 2023-10-11 00:12 | Emergency (ER) | payer MEDICAID, SELFPAY ==
[2023-10-11 00:11] VITALS: PULSE 145; RESP 16; TEMP 36.6; O2SAT 94
--- NOTE | 2023-10-11 00:34 | W.ED.GENAD ---
Discharge Plan Discharge Details Chief Complaint: PsychEval Primary Care Provider: None,None ED Provider: Elizabeth Vázquez Home Meds and New Rx's Prescriptions: No Action methadone [Methadone Intensol] 10 mg/mL concentrate 70 mg PO Q12H Patient Comments: CONFIRMED WITH [facility] ON 09/22/23 -- GETS A 70/70 SPLIT, LAST DOSED 09/19/23 prazosin 1 mg capsule 2 mg PO ONCE Patient Comments: TAKE ONE CAPSULE BY MOUTH EVERY EVENING WITH 2MG clonidine HCl 0.1 mg tablet 0.1 mg PO BID Patient Comments: Take 1 tablet by mouth twice a day clonidine HCl 0.2 mg tablet 0.2 mg PO QHS Patient Comments: TAKE ONE TABLET BY MOUTH AT BEDTIME quetiapine 300 mg tablet Patient Comments: TAKE ONE TABLET BY MOUTH AT BEDTIME quetiapine 100 mg tablet Patient Comments: TAKE ONE TABLET BY MOUTH EVERY EVENING trazodone 100 mg tablet Medical Decision Making 33-year-old male presents for evaluation after panic attack. Patient is tachycardic upon arrival. He is not suicidal or homicidal. He is requesting mental health evaluation. He will be given clonidine and prazosin as he has not taken these yet today. HPI General Date/Time Provider Initiated Documentation: 10/11/23 00:15. HPI Narrative: 33-year-old male with history of anxiety and auditory hallucinations presents for evaluation after panic attack. Patient states that his anxiety was significantly increased this evening. His roommate noticed and called EMS. Patient states that he did not take any of his normal home medications today. He states that he just was too busy with work and has very difficult time caring for himself because he was institutionalized in penitentiary for so long with other people taking care of him. He denies any auditory hallucinations at this time. Denies any suicidal ideation or homicidal ideation. He is requesting to see mental health as he knows that he needs help with his anxiety. He states that he did not eat today either. He denies any fevers or chills. No cough or cold. Denies any alcohol or recreational drug use today. No medical concerns. Related Data Home Medications Medication Instructions Recorded Confirmed clonidine HCl 0.1 mg tablet 0.1 mg PO BID 09/05/23 10/11/23 clonidine HCl 0.2 mg tablet 0.2 mg PO QHS 09/05/23 10/11/23 methadone 10 mg/mL oral 70 mg PO Q12H 09/22/23 10/11/23 concentrate (Methadone Intensol) prazosin 1 mg capsule 2 mg PO ONCE 09/22/23 10/11/23 quetiapine 100 mg tablet mg 10/11/23 quetiapine 300 mg tablet mg 10/11/23 trazodone 100 mg tablet mg 10/11/23 Allergies Allergy/AdvReac Type Severity Reaction Status Date / Time No Known Allergies Allergy Unverified 10/11/23 00:29 General Stated Complaint: PsychEval HALLE: 2 Review of Systems Narrative: Remainder of review of systems otherwise negative except for as noted in the HPI x10. PFSH All Active Problems Auditory hallucinations (Acute) Toothache (Acute) Methadone use (Acute) Anxiety (Chronic) Substance abuse (Acute) Auditory hallucination (Acute) Incidental pulmonary nodule (Acute) Opiate withdrawal (Acute) Cocaine withdrawal (Acute) Social History Smoking/Tobacco Use Status: Current every day Tobacco Type: e-cigarettes Smoking risk assessment performed?: Yes Alcohol Intake: former Drug use: Occasionally Substance use type: crack/cocaine Details: methadone and cocaine Housing: homeless Do you feel safe at home: Yes Do you feel safe in your relationship?: Yes Exam Narrative Exam Narrative: General: non-toxic, no respiratory distress, comfortable HEENT: normocephalic, atraumatic, lids and lashes normal, PERRL, EOMI, anicteric sclera, no conjunctival injection, moist oral mucosa Card: Tachycardic, regular, S1S2, no murmurs, rubs, or gallops Lungs: good air entry, clear to auscultation bilaterally. no wheezes, rales, rhonchi, or retractions Abd: soft, non-tender, non-distended, normal bowel sounds, no rebound or guarding, no peritoneal signs Musculoskeletal: full range of motion of arms and legs, no tenderness to palpation. no clubbing, cyanosis, or edema Neurologic: appropriate for age, strength normal Psych: alert and oriented, + anxious, denies suicidal ideation, denies homicidal ideation Skin: no petechiae, no lesions, warm and dry Course Vital Signs Vital signs: Vital Signs Temperature 36.6 C 10/11/23 00:11 Pulse 145 H 10/11/23 00:11 Respiratory Rate 16 10/11/23 00:11 Pulse Oximetry 94 10/11/23 00:11 Temperature 36.6 C 10/11/23 00:11 Pulse 145 H 10/11/23 00:11 Respiratory Rate 16 10/11/23 00:11 Blood Pressure Position Sitting 10/11/23 00:11 Pulse Oximetry 94 10/11/23 00:11 Oxygen Delivery Method Room Air 10/11/23 00:11 Oxygen Flow Rate 0 10/11/23 00:11 Pain Level 0 10/11/23 00:11
[2023-10-11] MEDS: Prazosin 1 MG CAP 2 MG PO (01:33)
[2023-10-11] MEDS: cloNIDine 0.1 MG TAB 0.2 MG PO (01:33)
[2023-10-11 02:46] VITALS: BP 120/76; PULSE 105; RESP 16; O2SAT 99
--- NOTE | 2023-10-11 14:35 | NUR.NOTE ---
Nursing Note: Attempted to notify patient about getting the wrong discharge instructions. Left a message for patient to call back
== END 2023-10-11 06:57 | disposition home or self-care (01) ==
LOC: ER 04:25
PROVIDERS: Emergency Provider Emergency Medicine Emergency Medical Services
DX: F41.9 Anxiety disorder, unspecified (principal); F41.0 Panic disorder [episodic paroxysmal anxiety]
CPT/HCPCS: 99283

== ENCOUNTER 2023-10-25 07:12 | Emergency (ER) | payer MEDICAID, SELFPAY ==
[2023-10-25] VITALS (28 sets, daily range): BP systolic 136–159; BP diastolic 78–103; PULSE 94–135; RESP 12–40; TEMP 37–37.1; O2SAT 93–98
--- NOTE | 2023-10-25 07:00 | RT.EKG_ITS ---
APPROVED REPORT Exam: Resting ECG Reason for Exam: chest pain Patient Location: E HR:111 bpm ECG Measurements Heart Rate 111 AXIS IN 131 P 70 QRSd 87 QRS 73 QT 334 T 55 QTc 455 Conclusion Sinus tachycardia...rate> 99 No major change vs prior
--- NOTE | 2023-10-25 07:30 | DI.RAD_ITS ---
Exam(s) XR CHEST 2V PA LATERAL EXAM: XR CHEST 2V PA LATERAL CLINICAL HISTORY: fever, cough, flu sxs, CP TECHNIQUE: 2D digital imaging was performed of the chest. Two images were obtained. PA and lateral views were obtained. COMPARISON: No exams were available for comparison FINDINGS: MEDIASTINUM: Normal. HEART: Normal. PULMONARY VASCULATURE: Normal. LUNGS: Clear. PLEURAL SPACE: No pleural effusion or pneumothorax. BONE:Within normal limits for the patient's age. OTHER FINDINGS:Normal. IMPRESSION: No acute pulmonary findings. DATA REPOSITORY: RADIATION DOSE DELIVERED:
--- NOTE | 2023-10-25 07:46 | ED.GENADUL_ITS ---
Discharge Plan Disposition Patient Disposition: Home Discharge Details Clinical Impression: Fever and chills, Chest pain Primary Care Provider: Unknown,Unknown ED Provider: Ingrid More Home Meds and New Rx's Prescriptions: New doxycycline hyclate 100 mg tablet 100 mg PO BID Qty: 28 0RF Continued methadone [Methadone Intensol] 10 mg/mL concentrate 70 mg PO Q12H Patient Comments: CONFIRMED WITH [facility] ON 09/22/23 -- GETS A 70/70 SPLIT, LAST DOSED 09/19/23 prazosin 1 mg capsule 2 mg PO ONCE Patient Comments: TAKE ONE CAPSULE BY MOUTH EVERY EVENING WITH 2MG clonidine HCl 0.1 mg tablet 0.1 mg PO BID Patient Comments: Take 1 tablet by mouth twice a day clonidine HCl 0.2 mg tablet 0.2 mg PO QHS Patient Comments: TAKE ONE TABLET BY MOUTH AT BEDTIME quetiapine 300 mg tablet Patient Comments: TAKE ONE TABLET BY MOUTH AT BEDTIME quetiapine 100 mg tablet 300 mg PO DAILY Patient Comments: TAKE ONE TABLET BY MOUTH EVERY EVENING trazodone 100 mg tablet 50 mg PO HS Discharge Instructions Instructions: Chest Pain (ED), Fever in Adults (ED), Upper Respiratory Infection (DC) Additional Instructions: Return home and rest. Drink plenty of fluids. You may alternate Tylenol 650 mg every 4 hours and/or ibuprofen 600 mg every 6 hours as needed for fever or aches. Your COVID and flu test were negative here today. Your Lyme titer is pending. Take the doxycycline 100 mg 2 times per day for 2 weeks. We will call you with your lab results. Return to ED for crushing chest pain, severe difficulty breathing, or any other concerns. Recheck with your PCP if no better in a week. Medical Decision Making Patient has a long history of anxiety. He states he gets chest pain with this but it is usually more transient. Medical Records Medical records reviewed: Yes I reviewed the patient's medical records. Medical records narrative: Patient is frequently tachycardic on prior visits. He is still doing cocaine and getting his methadone. 1000. 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 He is completely nontoxic-appearing in the ED. His labs are benign. I do have a Lyme test pending on him but will give him doxy to take at this time. He is encouraged to do symptomatic and supportive care. 6 Imaging Data Radiologic Study: Imaging: X-Ray (CXR: NAD) Lab Data Lab results reviewed: Yes I reviewed the patient's lab results. Lab results narrative: Covid/flu neg. WBC and lactate normal. BUN 22, potassium 3.3, AST 91, ALT 149. Trop is neg. Patient's LFTs have improved when compared to 09/22. Remainder of labs unremarkable. ECG Data Attestation: I personally reviewed and interpreted this ECG (s) as follows: (Sinus tachycardia at 110, little change versus 09/20/2023.) HPI General Date/Time Provider Initiated Documentation: 10/25/23 07:13 . HPI Narrative: This 33-year-old male patient with a history of anxiety, hallucinations, and substance abuse presents with a multitude of complaints. Patient states he has had diffuse chest discomfort for the past 3 days. He says this is squeezing in nature and has been constant though mild. It does wax and wane but is always there. It does not radiate anywhere. Nothing makes it better or worse. He also reports that 4 days ago he had some left-sided facial weakness. This included his forehead. He was able to close his eye without difficulty. It resolved after 3 days. He reports that he had this once before about 5 years ago when he was in [facility]. They gave him antibiotics for presumed Lyme disease. Patient states that yesterday he had a temperature to 102.5 degrees with associated runny nose, congestion, cough and headache. He had hot and cold chills. He says he was in bed all day. He has had no difficulty breathing. He denies nausea, vomiting, diarrhea, abdominal pain, or dysuria. There is no pedal edema or calf pain. He has no focal neurologic deficits at this time. He denies stiff neck or rashes. Related Data Home Medications Medication Instructions Recorded Confirmed clonidine HCl 0.1 mg tablet 0.1 mg PO BID 09/05/23 10/25/23 clonidine HCl 0.2 mg tablet 0.2 mg PO QHS 09/05/23 10/25/23 methadone 10 mg/mL oral 70 mg PO Q12H 09/22/23 10/25/23 concentrate (Methadone Intensol) prazosin 1 mg capsule 2 mg PO ONCE 09/22/23 10/25/23 quetiapine 100 mg tablet 300 mg PO DAILY 10/11/23 10/25/23 quetiapine 300 mg tablet mg 10/11/23 trazodone 100 mg tablet 50 mg PO HS 10/11/23 10/25/23 doxycycline hyclate 100 mg tablet 100 mg PO BID #28 tabs 10/25/23 Previous Rx's Medication Instructions Recorded doxycycline hyclate 100 mg tablet 100 mg PO BID #28 tabs 10/25/23 Allergies Allergy/AdvReac Type Severity Reaction Status Date / Time No Known Allergies Allergy Unverified 10/25/23 07:21 General Stated Complaint: GenMedical HALLE: 3 Review of Systems Constitutional Constitutional: Reports chills, Reports fever(s), Reports headache(s) and Reports weakness Eyes Eyes: Denies diplopia and Reports other (no redness) ENT Ears, Nose, Mouth, and Throat: Denies otalgia, Reports headache(s), Reports nasal congestion, Reports nasal discharge, Denies neck pain and Denies sore throat Cardiovascular Cardiovascular: Reports chest pain, Denies palpitations and Denies dyspnea Respiratory Respiratory: Reports cough and Denies dyspnea Gastrointestinal Gastrointestinal: Denies abdominal pain, Denies diarrhea, Denies nausea and Denies vomiting Genitourinary Genitourinary: Denies difficulty urinating and Denies dysuria Musculoskeletal Musculoskeletal: Denies myalgias, Denies muscle weakness, Denies neck pain, Denies numbness and Reports other (no edema or calf pain) Integumentary/Breasts Skin/Breast: Denies change in pigmentation and Denies rash Neurologic Neurologic: Reports headache(s), Denies numbness, Reports weakness and Reports other (reports L facial droop 4 days ago--resolved) Endocrine Endocrine: Denies palpitations PFSH All Active Problems (Updated 10/25/23 @ 10:18 by Ingrid More MD) Chest pain (Acute) Fever and chills (Acute) Auditory hallucinations (Acute) Toothache (Acute) Social History Smoking/Tobacco Use Status: Current every day Tobacco Type: e-cigarettes Smoking risk assessment performed?: Yes Alcohol Intake: former Drug use: Occasionally Substance use type: crack/cocaine Details: methadone and cocaine Housing: other Do you feel safe at home: Yes Do you feel safe in your relationship?: Yes Exam Const General: no acute distress, well developed, well groomed and not in acute distress Nutritional Appearance: well nourished Orientation: alert and oriented x3 HENMT Head: normocephalic and atraumatic Ears: external ears normal Mouth: oropharynx normal and moist mucous membranes Throat: posterior oropharynx normal Eyes Conjunctivae: conjunctivae normal Neck Neck: full ROM, supple and other (2+ carotids, no bruits) Chest Chest: normal inspection of the chest Resp Effort & Inspection: normal respiratory effort Auscultation: clear to auscultation bilaterally Cardio Rate: regular rate Rhythm: regular rhythm Heart Sounds: no murmurs and no rubs GI Inspection: normal to inspection Palpation: soft, nontender and other (non distended) Auscultation: normal bowel sounds Skin General skin exam: no rashes or lesions noted and other (pink, warm, dry) Neuro General: patient alert, patient awake and patient oriented x3 Cranial Nerves: CN's II-XI intact bilaterally Speech: speech normal Gait: normal gait Motor: muscle tone normal throughout, strength 5/5 throughout and other (ASIF) Sensory Exam: no sensory deficits noted Coordination: [id number] test normal and Romberg test normal Extrem General: normal to inspection, full ROM and pedal edema present Psych Mental Status: mental status grossly normal Speech and Movement: speech and movement normal Affect: normal affect Course Vital Signs Vital signs: Vital Signs Temperature 37.1 C 10/25/23 07:17 Pulse 113 H 10/25/23 07:17 Respiratory Rate 18 10/25/23 07:17 Blood Pressure 136/80 10/25/23 07:17 Pulse Oximetry 95 10/25/23 07:17 Temperature 37.1 C 10/25/23 07:32 Temperature Source Oral 10/25/23 07:32 Pulse 101 H 10/25/23 07:32 Respiratory Rate 18 10/25/23 07:32 Respiratory Effort Normal, Non-Labored 10/25/23 07:30 Respiratory Pattern Normal 10/25/23 07:30 Blood Pressure 140/103 H 10/25/23 07:32 Blood Pressure Position Sitting 10/25/23 07:32 Pulse Oximetry 95 10/25/23 07:32 Oxygen Delivery Method Room Air 10/25/23 07:32 Oxygen Flow Rate 0 11/25/23 07:17
[2023-10-25 08:27] LABS: Abs Immature Grans 0.04 10^3/uL (0.0-0.06); Absolute Basophil Count 0.03 10^3/uL (0.0-0.2); Absolute Eosinophil Count 0.05 10^3/uL (0.0-0.7); Absolute Lymphocyte Count 1.52 10^3/uL (1.2-3.4); Absolute Monocyte Count 0.43 10^3/uL (0.1-0.8); Absolute Neutrophil Count 6.85 10^3/uL (1.2-6.7); Basophils % 0.3; Eosinophils % 0.6; HCT 39.6 % (40.0-50.0); HGB 12.8 g/dL (13.5-17.5); Immature Grans % 0.4; MCH 27.9 pg (27.0-33.0); MCHC 32.3 % (32.0-36.0); MCV 86 fL (80-95); MPV 9.7 fL (8.0-11.0); Monocytes % 4.8; Neutrophils % 76.9; Platelet Count 207 10^3/uL (130-400); RBC 4.59 10^6/uL (4.36-5.78); RDW 13.5 % (11.8-14.1); RDW-SD 42.5 fL; WBC 8.92 10^3/uL (4.4-10.8)
[2023-10-25 08:43] LABS: Magnesium 2.2 mg/dL (1.8-2.4)
[2023-10-25 08:52] LABS: ALT 149 U/L (16-63); AST 91 U/L (15-37); Albumin 4.1 g/dL (3.4-5.0); Alkaline Phosphatase 76 U/L (46-116); Anion Gap 6.2 mmol/L (3-11); BUN 22 mg/dL (7-18); Bilirubin, Total 0.7 mg/dL (0.2-1.0); CO2 27.8 mmol/L (21.0-32.0); CREATININE 0.8 mg/dL (0.70-1.30); Calcium 9.7 mg/dL (8.5-10.1); Chloride 102 mmol/L (98-107); Estimated GFR 119.84 (mL/min/1.73m2); Glucose 75 mg/dL (74-106); Potassium 3.3 mmol/L (3.5-5.1); Sodium 136 mmol/L (136-145); Total Protein 8.1 g/dL (6.4-8.2); Troponin I < 50 ng/L (<or=60)
--- NOTE | 2023-10-25 09:36 | DI.VRAD_ITS ---
PROCEDURE INFORMATION: Exam: XR Chest Exam date and time: 10/25/2023 8:45 AM Age: 33 years old Clinical indication: Other: Fever, cough, flu sxs, cp TECHNIQUE: Imaging protocol: Radiologic exam of the chest. Views: 2 views. COMPARISON: CT THORAX CTA 09/19/2023 12:23 AM FINDINGS: Lungs: Unremarkable. No consolidation. Pleural spaces: Unremarkable. No pleural effusion. No pneumothorax. Heart/Mediastinum: Unremarkable. No cardiomegaly. Bones/joints: Unremarkable. IMPRESSION: No acute findings. Dictated and Authenticated by: Laura Genao MD. Ordering:RUPERTO Quintero MD
[2023-10-28 10:28] LABS: Lyme Ab w Rflx to Lyme Confirm Negative (Negative)
[2023-10-29 20:19] LABS: Anaplasma phagocytophilum Negative (Negative); B. miyamotoi PCR Negative (Negative); Babesia divergens/MO-1 Negative (Negative); Babesia duncani Negative (Negative); Babesia microti Negative (Negative); Ehrlichia chaffeensis Negative (Negative); Ehrlichia ewingii/canis Negative (Negative); Ehrlichia muris eauclairensis Negative (Negative)
== END 2023-10-25 10:30 | disposition home or self-care (01) ==
PROVIDERS: Emergency Provider Emergency Medicine
DX: R50.9 Fever, unspecified (principal); R07.9 Chest pain, unspecified; R53.1 Weakness; R00.0 Tachycardia, unspecified; F41.9 Anxiety disorder, unspecified; F17.210 Nicotine dependence, cigarettes, uncomplicated; Z20.822 Contact with and (suspected) exposure to COVID-19
CPT/HCPCS: 36415; 80053; 87426; 87798; 93005; 99283; 71046; 83605; 83735; 84484; 85025; 86618; 93010